=== PATIENT | female | born 1935 | race Caucasian/White ===

== ENCOUNTER → 2017-10-06 08:02 | Outpatient (CLI) | payer OTHER, SELFPAY ==
[2017-10-06 09:56] LABS: Anion Gap 8.8 mmol/L (3-11); BUN 22 mg/dL (7-18); CO2 29.2 mmol/L (21.0-32.0); CREATININE 0.89 mg/dL (0.55-1.02); Calcium 8.8 mg/dL (8.5-10.1); Chloride 106 mmol/L (98-107); Cholesterol 177 mg/dL (50-200); Glucose 164 mg/dL (70-100); HDL Cholesterol 44 mg/dL (40-60); LDL CHOLESTEROL 111 mg/dL (<100); Potassium 4.5 mmol/L (3.5-5.1); Sodium 144 mmol/L (136-145); Triglyceride 150 mg/dL (30-150)
[2017-10-06 09:58] LABS: COMMENT (LAB VIEW ONLY) 158.32 mg/dL; Microalb ug/mg Crea 19.5 ug/mg Cr
== END ==
PROVIDERS: PCP Internal Medicine; Visit Provider Internal Medicine
DX: E11.9 Type 2 diabetes mellitus without complications (principal); E78.00 Pure hypercholesterolemia, unspecified
CPT/HCPCS: 36415; 80048; 80061; 83721; 82043; 82570

== ENCOUNTER 2018-05-01 09:44 | Day surgery (SDC) | payer OTHER, SELFPAY ==
--- NOTE | 2018-04-30 17:52 | POEE_ITS ---
History of Present Illness Chief Complaint: Progressive decreased vision, right eye Narrative: The patient is an 82-year-old lady with history of progressive decreased vision in both eyes at both distance and near. She notes significant difficulty driving and watching television. On examination she was noted to have bilateral nuclear cortical and posterior subcapsular cataracts with visual acuity of 20/30 in each eye. The option of cataract surgery was offered to the patient and she felt she was symptomatic enough that she wished to proceed. NOTE: The Chief Complaint, HPI, Past Medical History, Past Surgical History, Family History, Social History, Medications, and complete Ophthalmic Exam with detailed Assessment and Plan have already been documented in the patient's outpatient ophthalmic record and are not covered again in detail here. PFS Medical History Cortical cataract of right eye (Acute) Nuclear sclerotic cataract of right eye (Acute) Posterior subcapsular age-related cataract, right eye (Acute) Diabetes mellitus Surgical History H/O toe surgery (Resolved) S/P tonsillectomy and adenoidectomy (Resolved) Ligation of fallopian tube (~1995) Family History Grandmother Diabetes Father Lung cancer Mother Emphysema of lung Social History housing: house lives independently: Yes number of children: 3 current occupational status: employed current occupation: hairdresser what type of physical activity do you participate in: walking duration: 15-30 minutes/day Smoking and Tabacco status: Former Tobacco Use Smoking risk assessment performed?: Yes alcohol intake: never substance use type: does not use Seatbelt use: always Drives intoxicated or rides with intoxicated front end loader driver: No working smoke detector in home: Yes carbon monox detector in home: Yes Meds Home Medications Medication Instructions Recorded Confirmed Type aspirin [Lo-Dose Aspirin] 81 mg PO DAILY tab-cap 06/22/12 04/26/18 History multivitamin 1 ea PO DAILY 06/22/12 04/26/18 History Accu-Chek Compact Plus Care kit 01/16/13 04/18/18 History lancets #180 ea 03/29/17 04/18/18 Rx albuterol sulfate [Proair Hfa] 1 - 2 puff INHALATION Q4H PRN 08/10/17 04/26/18 History inhaler blood sugar diagnostic strips #180 strip 04/05/18 04/18/18 Rx metformin 500 mg tablet 500 mg PO BID #180 tab-cap 04/05/18 04/26/18 Rx simvastatin 10 mg tablet 10 mg PO DAILY #90 tab-cap 04/05/18 04/26/18 Rx lisinopril 20 mg tablet 20 mg PO DAILY #90 tab 04/18/18 04/26/18 Rx ranitidine HCl 150 mg PO HS 04/27/18 04/27/18 History Allergies Allergy/AdvReac Type Severity Reaction Status Date / Time guaifenesin AdvReac Intermediate Nausea Verified 04/26/18 17:41 Exam OCULAR EXAM:: Most recent ocular examination revealed corrected visual acuity of 20/30 in each eye. Intraocular pressure is 15 OD, 16 OS. Extraocular motility is normal. Pupils equal, round, and reactive without afferent pupillary defect slit-lamp examination is significant for pupils dilating to 5.5 mm OU. 2+ n uclear with 1+ cortical cataract OU and trace posterior subcapsular cataract. Funduscopic examination reveals disc cupping of 0.5 OU with normal vessels. The optic nerves have good perfusion and normal color. The retinal vasculature is normal without significant tortuosity or abnormality. The maculas are normal in appearance with normal contour and foveal reflex appropriate for age. The peripheral retina and vitreous are normal. BRIGHTNESS ACUITY TESTING (BAT):: Brightness acuity testing of the right eye off is 20/30. Low is 20/40. Medium is 20/50. High is 20/60. Assessment and Plan (1) Posterior subcapsular age-related cataract, right eye: Current visit: No Status: Acute Assessment: Visually significant cataract, right eye. Plan: Cataract extraction with intraocular lens implantation, right eye (2) Nuclear sclerotic cataract of right eye: Current visit: No Status: Acute Assessment: Visually significant cataract, right eye. Plan: Cataract extraction with intraocular lens implantation, right eye (3) Cortical cataract of right eye: Current visit: No Status: Acute Assessment: Visually significant cataract, right eye. Plan: Cataract extraction with intraocular lens implantation, right eye Note: NOTE:: The details of the planned surgery, including the risks, indications,limitations,expectations,outcome and possible complications were explained to the patient. The patient understands the complications including, but not limited to: infection, hemorrhage, posterior dislocation of the lens or nuclear fragments which may require the intervention of a vitreoretinal surgeon, possible loss of the eye, or from anesthetic complications. The patient has been made aware of the option of not having surgery, that vision following surgery may not be equal to that prior to surgery, and that the planned surgery may not achieve the intended results. Following this discussion, which the patient appeared to understand, the patient wishes to proceed with cataract surgery with lens implantation of the affected eye to improve and maximize vis ion.
--- NOTE | 2018-04-30 18:35 | W.PM.DSUDISC ---
Discharge Plan Disposition Patient Disposition: HOME Condition: Stable Discharge Details Attending Provider: Joseph Zuluaga Primary Care Provider: Selene White Home Meds and New Rx's Prescriptions: No Action lisinopril 20 mg tablet 20 mg PO DAILY Qty: 90 RF: 3 multivitamin 1 EACH tablet 1 ea PO DAILY RF: 0 aspirin [Lo-Dose Aspirin] 81 MG tablet,delayed release (DR/EC) 81 mg PO DAILY RF: 0 Accu-Chek Compact Plus Care 1 EACH kit 1 ea Miscellaneous RF: 0 lancets 1 EACH misc 1 ea Miscellaneous BID Qty: 180 RF: 3 albuterol sulfate [ProAir HFA] 8.5 GM HFA aerosol inhaler 1 - 2 puff Inhalation Q4H PRN RF: 0 Blood Glucose Test strip 1 ea Miscellaneous BID Qty: 180 RF: 3 metformin 500 mg tablet 500 mg PO BID Qty: 180 RF: 3 simvastatin 10 mg tablet 10 mg PO DAILY Qty: 90 RF: 3 ranitidine HCl 150 mg tablet 150 mg PO HS RF: 0 Discharge Instructions Stand Alone Forms: Post-op Topical Cataract, Stoney Valverde (DSU) Discharge Orders Discharge Orders: Discharge Order (Routine); Ordered 05/01/18 Ordered By: Joseph Zuluaga DS: Diagnosis Discharge Diagnosis (1) Status post cataract extraction and insertion of intraocular lens of right eye: Status: Chronic
[2018-05-01 09:55] VITALS: BP 144/81; PULSE 88; RESP 16; TEMP 35.9; O2SAT 95
[2018-05-01] MEDS: Tetracaine 0.5% 4 ML BTL OD ×4 (10:23→11:53)
[2018-05-01] MEDS: Tropicam./Phenyleph. (1/2.5%) 5 ML BTL OD ×3 (10:24→11:32)
[2018-05-01] MEDS: Lidocaine 2% Jelly 6 ML SYR (11:53)
[2018-05-01] MEDS: Povidone-Iodine Ophth 30 ML BTL ×2 (11:53→11:58)
[2018-05-01] MEDS: Balanced Salt Soln.-PLUS 500 ML BAG (12:00)
[2018-05-01] MEDS: Lidocaine 1% Pres-Free 5 ML VIAL (12:01)
--- NOTE | 2018-05-01 12:22 | W.PM.OP ---
Date of service: 05/01/18 Time of Service: 12:23 Operative Note PRE-OP DIAGNOSIS: Cataract, right eye PROCEDURE: Cataract extraction using phacoemulsification with intraocular lens implant, right eye SURGEON: Joseph Zuluaga ANESTHESIA: MAC and local (sub-tenon's anesthetic infiltration) ESTIMATED BLOOD LOSS: 0 PATHOLOGY: none sent COMPLICATIONS: None Patient was transported to: same day Patient's condition: stable Implants: Dario [employer] Dario Vision / [employer] Tecnis ZCB00 intraocular lens Indications: Progressive decreased vision due to cataract, right eye Procedure Description: CATARACT SURGERY OPERATIVE REPORT PREOPERATIVE DIAGNOSIS: Nuclear/cortical/posterior subcapsular cataract, right eye POSTOPERATIVE DIAGNOSIS: Same OPERATION: Cataract extraction using phacoemulsification with posterior chamber intraocular lens implant, right eye. IOL: IOL Environmental Remediation Specialist/Model: J&J Ambarella / LEONARDO Tecnis ZCB00 IOL Power: + 21.50 diopters IOL Serial Number: [id number] Optic Diameter: 6.0mm Haptic/Overall Diameter: 13.0mm PHACO INFO: [employer] Vision System with OZil and Active Fluidics Cumulative Dispersed Energy (CDE): 6.8 seconds SURGEON: Joseph Zuluaga MD, DUGLAS ANESTHESIA: Monitored Anesthesia Care (MAC), with local sub-tenon's anesthetic infiltration COMPLICATIONS: None SPECIMENS: None INDICATIONS FOR PROCEDURE: The patient is an 82-year-old lady with history of diminished visual acuity in both eyes secondary to the development of bilateral nuclear cortical and posterior subcapsular cataract. She is significantly symptomatic that she desires cataract surgery and attempt to improve and maximize her vision. PROCEDURE: The correct surgical eye was identified and marked as the right eye and the pupil was dilated in the preoperative area using mydriatics and cycloplegics. The dilated pupil size was 7.0 mm. Oral sedation was administered in the form of an Imprimis MKO Melt (midazolam 3mg/ketamine 25mg/ondansetron 2mg). The patient was brought to the operating room where cardiopulmonary monitoring was instituted and surgical time-out was performed, confirming the correct operative eye and IOL power. Topical anesthesia was administered and ophthalmic povidone-iodine 5% was instilled into the conjunctival fornices. Lidocaine gel was applied to the cornea and the meera-ocular area was prepped with Betadine 10% solution and draped in the usual sterile fashion for intraocular surgery, including an aperture drape. A Tegaderm transparent film dressing was cut in half and used to cover the lashes and lid margins. Care was taken to sequester the lashes and lid margins under the Tegaderm dressing. A lid speculum was placed between the lids of the operative eye and the Nilda-Rashel operating microscope was maneuvered into position. Ifrah scissors were then used to make a conjunctival buttonhole approximately 6mm posterior to the limbus in the inferonasal quadrant. Blunt dissection was carried out to expose bare sclera, and a blunt-tipped sub-tenon?s anesthesia cannula was introduced and passed posteriorly along the globe where non-preserved plain lidocaine was injected into posterior sub-Tenon?s space. A sideport knife was used to make a paracentesis port inferiortemporally, and the anterior chamber was filled with Healon GV. A 2.4mm keratome knife was used to create a half-thickness groove at the limbus and then to construct a three-plane near-clear corneal tunnel extending 2.0mm into clear cornea in the superiortemporal position. . A flap was raised on the anterior capsule and capsulorhexis forceps were used to complete a continuous curvilinear capsulorhexis of 5.0 mm. Balanced salt solution was then used to perform cortical cleaving hydrodissection and nuclear hydrodelineation until the lens could be freely rotated within the capsular bag. The lens nucleus was then disassembled and removed within the capsular bag and iris plane using phacoemulsification. Residual cortical material was removed using the I/A handpiece. The posterior capsule was carefully polished to remove as much residual lens epithelial cells as safely possible. The capsular bag was then inflated and the anterior chamber deepened with viscoelastic. The lens implant described above was inserted into the capsular bag using the LEONARDO [place] Injector. A Kuglen hook was used to dial the IOL into position. Residual viscoelastic was then removed first from posterior to the IOL, then from the anterior chamber using the I/A handpiece. The lens implant was noted to center nicely within the capsular bag. The incisions were stromally hydrated, and the anterior chamber was reformed using BSS. Then 0.4cc of moxifloxacin 1.5mg/ml were injected into the capsular bag and anterior chamber. The incisions were checked with a Weck spear and found to be secure. Several drops of ophthalmic povidone-iodine 5% were then applied to the eye followed by two drops of Imprimis combination moxifloxacin/dexamethasone solution. The drapes were removed and a clear plastic protective eye shield was placed over the eye. The patient was then returned to Same Day Surgery in stable condition.
[2018-05-01 12:45] VITALS: BP 133/80; PULSE 80; RESP 16; TEMP 35.9; O2SAT 92
--- NOTE | 2018-05-01 13:40 | ROE_ITS ---
Date of service: 05/01/18 Time of Service: 13:40 Operative Note PRE-OP DIAGNOSIS: Cataract, right eye PROCEDURE: Dario [employer] Dario Vision / [employer] Tecnis ZCB00 intraocular lens SURGEON: Joseph Zuluaga ANESTHESIA: MAC and local (sub-tenon's anesthetic infiltration) ESTIMATED BLOOD LOSS: 0 PATHOLOGY: none sent COMPLICATIONS: None Patient was transported to: same day Patient's condition: stable Implants: Dario [employer] Dario Vision / [employer] Tecnis ZCB00 intraocular lens Indications: Progressive decreased vision due to cataract, right eye Procedure Description: CATARACT SURGERY OPERATIVE REPORT PREOPERATIVE DIAGNOSIS: [] POSTOPERATIVE DIAGNOSIS: Same OPERATION: Cataract extraction using phacoemulsification with posterior chamber intraocular lens implant, right eye. IOL: IOL Car Hop/Model: J&J Vision / LEONARDO Tecnis ZCB00 IOL Power: +[] diopters IOL Serial Number: [] Optic Diameter: 6.0mm Haptic/Overall Diameter: 13.0mm PHACO INFO: Dieter [employer] Vision System with OZil and Active Fluidics Cumulative Dispersed Energy (CDE): [] seconds SURGEON: Joseph Zuluaga MD, DUGLAS ANESTHESIA: Monitored Anesthesia Care (MAC), with local sub-tenon's anesthetic infiltration COMPLICATIONS: None SPECIMENS: None INDICATIONS FOR PROCEDURE: [] PROCEDURE: The correct surgical eye was identified and marked as the right eye and the pupil was dilated in the preoperative area using mydriatics and cycloplegics. The dilated pupil size was [] mm. Oral sedation was administered in the form of an Imprimis MKO Melt (midazolam 3mg/ketamine 25mg/ondansetron 2mg). The patient was brought to the operating room where cardiopulmonary monitoring was instituted and surgical time-out was performed, confirming the correct operative eye and IOL power. Topical anesthesia was administered and ophthalmic povidone-iodine 5% was instilled into the conjunctival fornices. Lidocaine gel was applied to the cornea and the meera-ocular area was prepped with Betadine 10% solution and draped in the usual sterile fashion for intraocular surgery, including an aperture drape. A Tegaderm transparent film dressing was cut in half and used to cover the lashes and lid margins. Care was taken to sequester the lashes and lid margins under the Tegaderm dressing. A lid speculum was placed between the lids of the operative eye and the Nilda-Rashel operating microscope was maneuvered into position. Ifrah scissors were then used to make a conjunctival buttonhole approximately 6mm posterior to the limbus in the inferonasal quadrant. Blunt dissection was carried out to expose bare sclera, and a blunt-tipped sub-tenon?s anesthesia cannula was introduced and passed posteriorly along the globe where non- preserved plain lidocaine was injected into posterior sub-Tenon?s space. A sideport knife was used to make a paracentesis port inferiortemporally, and the anterior chamber was filled with Healon GV. A 2.4mm keratome knife was used to create a half-thickness groove at the limbus and then to construct a three-plane near-clear corneal tunnel extending 2.0mm into clear cornea in the superiortemporal position. . A flap was raised on the anterior capsule and capsulorhexis forceps were used to complete a continuous curvilinear capsulorhexis of []mm. Balanced salt solution was then used to perform cortical cleaving hydrodissection and nuclear hydrodelineation until the lens could be freely rotated within the capsular bag. The lens nucleus was then disassembled and removed within the capsular bag and iris plane using phacoemulsification. Residual cortical material was removed using the I/A handpiece. The posterior capsule was carefully polished to remove as much residual lens epithelial cells as safely possible. The capsular bag was then inflated and the anterior chamber deepened with viscoelastic. The lens implant described above was inserted into the capsular bag using the LEONARDO [place] Injector. A Kuglen hook was used to dial the IOL into position. Residual viscoelastic was then removed first from posterior to the IOL, then from the anterior chamber using the I/A handpiece. The lens implant was noted to center nicely within the capsular bag. The incisions were stromally hydrated, and the anterior chamber was reformed using BSS. Then 0.4cc of moxifloxacin 1.5mg/ml were injected into the capsular bag and anterior chamber. The incisions were checked with a Weck spear and found to be secure. Several drops of ophthalmic povidone-iodine 5% were then applied to the eye followed by two drops of Imprimis combination moxifloxacin/dexamethasone solution. The drapes were removed and a clear plastic protective eye shield was placed over the eye. The patient was then returned to Same Day Surgery in stable condition.
== END 2018-05-01 12:55 | disposition home or self-care (01) ==
PROVIDERS: PCP Internal Medicine; Visit Provider Ophthalmology
PROC: (CPT 66984; principal; 2018-05-01 13:45)
DX: H25.811 Combined forms of age-related cataract, right eye (principal); E11.9 Type 2 diabetes mellitus without complications; Z79.84 Long term (current) use of oral hypoglycemic drugs; I10 Essential (primary) hypertension; K21.9 Gastro-esophageal reflux disease without esophagitis
CPT/HCPCS: 66984; V2632

== ENCOUNTER 2018-05-15 09:48 | Day surgery (SDC) | payer OTHER, SELFPAY ==
--- NOTE | 2018-05-14 17:08 | POEE_ITS ---
History of Present Illness Chief Complaint: Progressive decreased vision, left eye Narrative: The patient is an 82-year old lady who presented with complaints of progressive decreased vision in both eyes at both distance and near, particularly when driving. She notes significant glare with bright lights at night and sunlight. On examination she was noted to have moderate bilateral nuclear cortical and posterior subcapsular cataracts with visual acuity of 20/30 in each eye, but with significant glare disability. The option of cataract surgery was offered to the patient and she felt she was symptomatic enough that she wished to proceed. Cataract surgery was performed OD on 05/01/2018. Postoperatively, she has regained uncorrected vision of 20/20 in the right eye. She now presents for cataract surgery in the left eye. NOTE: The Chief Complaint, HPI, Past Medical History, Past Surgical History, Family History, Social History, Medications, and complete Ophthalmic Exam with detailed Assessment and Plan have already been documented in the patient's outpatient ophthalmic record and are not covered again in detail here. PFS Medical History Cortical cataract of right eye (Resolved) Nuclear sclerotic cataract of right eye (Resolved) Posterior subcapsular age-related cataract, right eye (Resolved) Diabetes mellitus Surgical History Status post cataract extraction and insertion of intraocular lens of right eye (Chronic 05/01/18) H/O toe surgery (Resolved) S/P tonsillectomy and adenoidectomy (Resolved) Ligation of fallopian tube (~1995) Family History Grandmother Diabetes Father Lung cancer Mother Emphysema of lung Social History Smoking/Tobacco Use Status: Former Tobacco Use Alcohol Intake: never Drug use: Never Substance use type: does not use Housing: house Number of Children: 3 current occupation: hairdresser What type of physical activity do you participate in: walking Duration: 15-30 minutes/day Seatbelt use: always Drive intox or ride w/intox road oiling truck driver: No Working smoke detector in home: Yes Carbon monox detector in home: Yes Do you feel safe in your relationship?: Yes Meds Home Medications Medication Instructions Recorded Confirmed Type aspirin [Lo-Dose Aspirin] 81 mg PO DAILY tab-cap 06/22/12 05/01/18 History multivitamin 1 ea PO DAILY 06/22/12 05/01/18 History Accu-Chek Compact Plus Care kit 01/16/13 05/01/18 History lancets #180 ea 03/29/17 05/01/18 Rx albuterol sulfate [Proair Hfa] 1 - 2 puff INHALATION Q4H PRN 08/10/17 05/01/18 History inhaler blood sugar diagnostic strips #180 strip 04/05/18 05/01/18 Rx metformin 500 mg tablet 500 mg PO BID #180 tab-cap 04/05/18 05/01/18 Rx simvastatin 10 mg tablet 10 mg PO DAILY #90 tab-cap 04/05/18 05/01/18 Rx lisinopril 20 mg tablet 20 mg PO DAILY #90 tab 04/18/18 05/01/18 Rx ranitidine HCl 150 mg PO HS 04/27/18 05/01/18 History Allergies Allergy/AdvReac Type Severity Reaction Status Date / Time guaifenesin AdvReac Intermediate Nausea Verified 04/26/18 17:41 Exam OCULAR EXAM:: Most recent ocular examination is significant for uncorrected vision of 20/20 OD, 20/30 OS. Intraocular pressure is 17 OD, 16 OS. Pupils equal, round, and reactive without afferent pupillary defect extraocular motility is normal. Slit-lamp examination is significant for pupils dilating to 5.5 mm OU. Well-positioned PCIOL OD with clear posterior capsule. In the left eye there is a 2+ nuclear with 1+ cortical and trace posterior subcapsular cataract. Dilated funduscopic examination shows disc cupping of 0.5 OU with good color. The optic nerves have good perfusion and normal color. The retinal vasculature is normal without significant tortuosity or abnormality. The maculas are normal in appearance with normal contour and foveal reflex appropriate for age. The peripheral retina and vitreous are normal. BRIGHTNESS ACUITY TESTING (BAT):: Brightness acuity testing of the left eye off is 20/30. Low is 20/40. Medium is 20/50. High is 20/60. Assessment and Plan (1) Posterior subcapsular age-related cataract of left eye: Current visit: No Status: Acute Assessment: Visually significant cataract, left eye. Plan: Cataract extraction with intraocular lens implantation, left eye (2) Nuclear sclerotic cataract of left eye: Current visit: No Status: Acute Assessment: Visually significant cataract, left eye. Plan: Cataract extraction with intraocular lens implantation, left eye (3) Cortical cataract of left eye: Current visit: No Status: Acute Assessment: Visually significant cataract, left eye. Plan: Cataract extraction with intraocular lens implantation, left eye Note: NOTE:: The details of the planned surgery, including the risks, indications,limitations,expectations,outcome and possible complications were explained to the patient. The patient understands the complications including, but not limited to: infection, hemorrhage, posterior dislocation of the lens or nuclear fragments which may require the intervention of a vitreoretinal surgeon, possible loss of the eye, or from anesthetic complications. The patient has been made aware of the option of not having surgery, that vision following surgery may not be equal to that prior to surgery, and that the planned surgery may not achieve the intended results. Following this discussion, which the patient appeared to understand, the patient wishes to proceed with cataract surgery with lens implantation of the affected eye to improve and maximize vision.
--- NOTE | 2018-05-14 19:49 | W.PM.DSUDISC ---
Discharge Plan Disposition Patient Disposition: HOME Condition: Stable Discharge Details Attending Provider: Joseph Zuluaga Primary Care Provider: Selene White Home Meds and New Rx's Prescriptions: No Action lisinopril 20 mg tablet 20 mg PO DAILY Qty: 90 RF: 3 multivitamin 1 EACH tablet 1 ea PO DAILY RF: 0 aspirin [Lo-Dose Aspirin] 81 MG tablet,delayed release (DR/EC) 81 mg PO DAILY RF: 0 Accu-Chek Compact Plus Care 1 EACH kit 1 ea Miscellaneous RF: 0 lancets 1 EACH misc 1 ea Miscellaneous BID Qty: 180 RF: 3 albuterol sulfate [ProAir HFA] 8.5 GM HFA aerosol inhaler 1 - 2 puff Inhalation Q4H PRN RF: 0 Blood Glucose Test strip 1 ea Miscellaneous BID Qty: 180 RF: 3 metformin 500 mg tablet 500 mg PO BID Qty: 180 RF: 3 simvastatin 10 mg tablet 10 mg PO DAILY Qty: 90 RF: 3 ranitidine HCl 150 mg tablet 150 mg PO HS RF: 0 Discharge Instructions Stand Alone Forms: Post-op Topical Cataract, Press Ganey (DSU) Discharge Orders Discharge Orders: Discharge Order (Routine); Ordered 05/15/18 Ordered By: Joseph Zuluaga DS: Diagnosis Discharge Diagnosis (1) Posterior subcapsular age-related cataract of left eye: Status: Resolved (2) Nuclear sclerotic cataract of left eye: Status: Resolved (3) Cortical cataract of left eye: Status: Resolved (4) Status post cataract extraction and insertion of intraocular lens of left eye: Status: Chronic
--- NOTE | 2018-05-14 19:54 | ROE_ITS ---
Date of service: 05/15/18 Time of Service: 12:04 Operative Note PRE-OP DIAGNOSIS: Cataract, left eye POST-OP DIAGNOSIS: same PROCEDURE: Cataract extraction using phacoemulsification with intraocular lens implant, left eye SURGEON: Joseph Zuluaga ANESTHESIA: MAC and local (sub-tenon's anesthetic infiltration) PATHOLOGY: none sent COMPLICATIONS: None Patient was transported to: same day Patient's condition: stable Implants: D[employer] / [employer] Tecnis [id number] Indications: Progressive decreased vision due to cataract, left eye Procedure Description: CATARACT SURGERY OPERATIVE REPORT PREOPERATIVE DIAGNOSIS: Nuclear/cortical/posterior subcapsular cataract, left eye POSTOPERATIVE DIAGNOSIS: Same OPERATION: Cataract extraction using phacoemulsification with posterior chamber intraocular lens implant, left eye. IOL: IOL Collection Manager/Model: [employer] / LEONARDO Tecnis [id number] IOL Power: + 21.50 diopters IOL Serial Number: [id number] Optic Diameter: 6.0mm Haptic/Overall Diameter: 13.0mm PHACO INFO: Dieter [employer] Vision System with OZil and Active [employer]uidics Cumulative Dispersed Energy (CDE): 6.49 seconds SURGEON: Joseph Zuluaga MD, DU[place] ANESTHESIA: Monitored Anesthesia Care (MAC), with local sub-tenon's anesthetic infiltration COMPLICATIONS: None SPECIMENS: None INDICATIONS FOR PROCEDURE: The patient is an 82-year-old lady with history of diminished visual acuity in both eyes secondary to the development of bilateral nuclear cortical and posterior subcapsular cataract. She was significantly symptomatically she desired cataract surgery, which was performed OD on 05/01/2018. She is doing well postoperatively, and now presents for cataract surgery of the left eye. PROCEDURE: The correct surgical eye was identified and marked as the left eye and the pupil was dilated in the preoperative area using mydriatics and cycloplegics. The dilated pupil size was 6.5 mm. No oral or IV sedation was used. The patient was brought to the operating room where cardiopulmonary monitoring was instituted and surgical time-out was performed, confirming the correct operative eye and IOL power. Topical anesthesia was administered and ophthalmic povidone-iodine 5% was instilled into the conjunctival fornices. Lidocaine gel was applied to the cornea and the meera-ocular area was prepped with Betadine 10% solution and draped in the usual sterile fashion for intraocular surgery, including an aperture drape. A Tegaderm transparent film dressing was cut in half and used to cover the lashes and lid margins. Care was taken to sequester the lashes and lid margins under the Tegaderm dressing. A lid speculum was placed between the lids of the operative eye and the Nilda-Rashel operating microscope was maneuvered into position. Ifrah scissors were then used to make a conjunctival buttonhole approximately 6mm posterior to the limbus in the inferonasal quadrant. Blunt dissection was carried out to expose bare sclera, and a blunt-tipped sub-tenon?s anesthesia cannula was introduced and passed posteriorly along the globe where non- preserved plain lidocaine was injected into posterior sub-Tenon?s space. A sideport knife was used to make a paracentesis port superior/superiortemporal, and the anterior chamber was filled with Healon GV. A 2.4mm keratome knife was used to create a half-thickness groove at the limbus and then to construct a three-plane near-clear corneal tunnel extending 2.0mm into clear cornea in the temporal position. . A flap was raised on the anterior capsule and capsulorhexis forceps were used to complete a continuous curvilinear capsulorhexis of 5.0 mm. Balanced salt solution was then used to perform cortical cleaving hydrodissection and nuclear hydrodelineation until the lens could be freely rotated within the capsular bag. The lens nucleus was then disassembled and removed within the capsular bag and iris plane using phacoemulsification. Residual cortical material was removed using the 45-degree angled silicone I/A tip with 0.3mm port. The posterior capsule was carefully polished to remove as much residual lens epithelial cells as safely possible. The capsular bag was then inflated and the anterior chamber deepened with viscoelastic. The lens implant described above was inserted into the capsular bag using the LEONARDO [place] Injector. A Kuglen hook was used to dial the IOL into position. Residual viscoelastic was then removed first from posterior to the IOL, then from the anterior chamber using the I/A handpiece. The lens implant was noted to center nicely within the capsular bag. The incisions were stromally hydrated, and the anterior chamber was reformed using BSS. Then 0.4cc of moxifloxacin 1.5mg/ml were injected into the capsular bag and anterior chamber. The incisions were checked with a Weck spear and found to be secure. Several drops of ophthalmic povidone-iodine 5% were then applied to the eye followed by two drops of Imprimis combination moxifloxacin/dexamethasone solution. The drapes were removed and a clear plastic protective eye shield was placed over the eye. The patient was then returned to [facility] Day Surgery in stable condition.
[2018-05-15 10:03] VITALS: BP 125/78; PULSE 86; RESP 18; TEMP 36.1; O2SAT 95
[2018-05-15] MEDS: Tetracaine 0.5% 4 ML BTL OS ×4 (10:20→11:34)
[2018-05-15] MEDS: Tropicam./Phenyleph. (1/2.5%) 5 ML BTL OS ×3 (10:20→10:27)
[2018-05-15] MEDS: Povidone-Iodine Ophth 30 ML BTL (11:34)
[2018-05-15] MEDS: Lidocaine 2% Jelly 6 ML SYR (11:34)
[2018-05-15] MEDS: Lidocaine 1% Pres-Free 5 ML VIAL (11:39)
[2018-05-15] MEDS: Balanced Salt Soln.-PLUS 500 ML BAG (11:40)
== END 2018-05-15 12:25 | disposition home or self-care (01) ==
LOC: SUR 09:48
PROVIDERS: PCP Internal Medicine; Visit Provider Ophthalmology
PROC: (CPT 66984; principal; 2018-05-15 13:45)
DX: H25.812 Combined forms of age-related cataract, left eye (principal); Z98.41 Cataract extraction status, right eye; Z96.1 Presence of intraocular lens; E11.9 Type 2 diabetes mellitus without complications; Z79.84 Long term (current) use of oral hypoglycemic drugs; I10 Essential (primary) hypertension; K21.9 Gastro-esophageal reflux disease without esophagitis
CPT/HCPCS: 66984; V2632

== ENCOUNTER 2018-08-01 06:51 | Outpatient (CLI) | payer OTHER, SELFPAY ==
[2018-08-01 09:16] LABS: COMMENT (LAB VIEW ONLY) 82.63 mg/dL; Microalb ug/mg Crea 71.5 ug/mg Cr
[2018-08-01 09:17] LABS: Anion Gap 7.8 mmol/L (3-11); BUN 20 mg/dL (7-18); CO2 29.2 mmol/L (21.0-32.0); Calcium 9.1 mg/dL (8.5-10.1); Calculated LDL 104; Chloride 105 mmol/L (98-107); Cholesterol 176 mg/dL (50-200); Glucose 177 mg/dL (70-100); HDL Cholesterol 42 mg/dL (40-60); Potassium 4.8 mmol/L (3.5-5.1); Sodium 142 mmol/L (136-145); Triglyceride 152 mg/dL (30-150)
== END 2018-08-01 07:11 ==
PROVIDERS: PCP Internal Medicine; Visit Provider Internal Medicine
DX: E11.9 Type 2 diabetes mellitus without complications (principal); E78.00 Pure hypercholesterolemia, unspecified; I10 Essential (primary) hypertension; R73.01 Impaired fasting glucose
CPT/HCPCS: 36415; 80048; 80061; 83721; 82043; 82570

== ENCOUNTER 2018-09-14 10:21 | Outpatient (CLI) | payer OTHER, SELFPAY ==
--- NOTE | 2018-09-14 10:25 | DI.RAD_ITS ---
SYMPTOMS/DIAGNOSIS: CERVICALGIA, M54.2 CERVICAL SPINE: There are severe facet joint degenerative changes at C 2 - 3 and C 3 - 4. There are degenerative disc changes greatest at C 5 - 6. There is mild bilateral neural foraminal narrowing at this level. The alignment appears normal. There is no prevertebral soft tissue swelling. IMPRESSION: Degenerative changes greatest at C 5 - 6 with bilateral neural foraminal narrowing.
== END 2018-09-14 10:41 ==
PROVIDERS: PCP Internal Medicine; Visit Provider Internal Medicine
DX: M54.2 Cervicalgia (principal); M47.12 Other spondylosis with myelopathy, cervical region; M48.02 Spinal stenosis, cervical region
CPT/HCPCS: 72050

== ENCOUNTER 2019-12-05 10:28 | Outpatient (REF) | payer OTHER, SELFPAY ==
[2019-12-05 20:52] LABS: Anion Gap 9.5 mmol/L (3-11); BUN 20 mg/dL (7-18); CO2 28.5 mmol/L (21.0-32.0); CREATININE 0.88 mg/dL (0.55-1.02); Calcium 9.4 mg/dL (8.5-10.1); Calculated LDL 104 mg/dL (<100); Chloride 104 mmol/L (98-107); Cholesterol 181 mg/dL (<200); Glucose 171 mg/dL (74-106); HDL Cholesterol 47 mg/dL (40-60); Potassium 5.2 mmol/L (3.5-5.1); Sodium 142 mmol/L (136-145); Triglyceride 154 mg/dL (<150)
== END 2019-12-05 10:48 ==
LOC: LBN 10:28
PROVIDERS: PCP Internal Medicine; Visit Provider Internal Medicine
DX: E11.9 Type 2 diabetes mellitus without complications (principal); I10 Essential (primary) hypertension; R80.9 Proteinuria, unspecified
CPT/HCPCS: 80048; 80061

== ENCOUNTER 2019-12-06 20:50 | Outpatient (REF) | payer OTHER, SELFPAY ==
[2019-12-06 18:23] LABS: COMMENT (LAB VIEW ONLY) 103.66 mg/dL; Microalb ug/mg Crea 35.6 ug/mg Cr
== END 2019-12-06 21:10 ==
LOC: LBN 20:50
PROVIDERS: PCP Internal Medicine; Visit Provider Internal Medicine
DX: E11.29 Type 2 diabetes mellitus with other diabetic kidney complication (principal); R80.9 Proteinuria, unspecified
CPT/HCPCS: 82043; 82570

== ENCOUNTER 2020-09-01 15:43 | Outpatient (CLI) | payer OTHER, SELFPAY ==
--- NOTE | 2020-09-01 14:15 | DI.RAD_ITS ---
Exam(s) XR KNEE LT 3V AP,LAT,REJI EXAM: XR KNEE LT 3V AP,LAT,REJI CLINICAL HISTORY: left knee pain. TECHNIQUE: 2D digital imaging was performed. COMPARISON: No exams were available for comparison FINDINGS: There is no evidence of fracture although there does appear to be a joint effusion as seen on the lat eral view. There is advanced narrowing of the lateral compartment [id number] apposition. Also mar ginal osteophytes. No significant narrowing of the medial compartment noted. Moderate degenerative changes in the patellofemoral compartment. No osseous lesions. IMPRESSION: Osteoarthritic degenerative changes as described above. DATA REPOSITORY: RADIATION DOSE DELIVERED:
== END 2020-09-01 15:44 | disposition home or self-care (01) ==
LOC: DIORS 15:43
PROVIDERS: PCP Internal Medicine; Referring Provider Internal Medicine; Visit Provider Student in an Organized Health Care Education/Training Program
DX: M25.562 Pain in left knee (principal); M17.12 Unilateral primary osteoarthritis, left knee
CPT/HCPCS: 73562; 99214

== ENCOUNTER → 2020-11-11 09:25 | Outpatient (BNVA) | payer MEDICARE, SELFPAY | PROVIDERS: PCP Internal Medicine; Referring Provider Internal Medicine | DX: M17.12 Unilateral primary osteoarthritis, left knee (principal) | CPT/HCPCS: 20610; J7325 ==

== ENCOUNTER 2020-12-25 02:55 | Outpatient (CLI) | payer MEDICARE, SELFPAY ==
[2020-12-25 10:28] LABS: COMMENT (LAB VIEW ONLY) 159.82 mg/dL; Microalb ug/mg Crea 32.8 ug/mg Cr
[2020-12-25 10:42] LABS: Anion Gap 10.1 mmol/L (3-11); BUN 27 mg/dL (7-18); CO2 30.9 mmol/L (21.0-32.0); Calcium 9.7 mg/dL (8.5-10.1); Calculated LDL 86 mg/dL (<100); Chloride 102 mmol/L (98-107); Cholesterol 159 mg/dL (<200); Estimated GFR 52.95 (mL/min/1.73m2); Glucose 192 mg/dL (74-106); HDL Cholesterol 39 mg/dL (40-60); Potassium 4.4 mmol/L (3.5-5.1); Sodium 143 mmol/L (136-145); Triglyceride 171 mg/dL (<150)
== END 2020-12-25 02:56 | disposition home or self-care (01) ==
LOC: LBO 02:55
PROVIDERS: PCP Internal Medicine; Visit Provider Internal Medicine
DX: E78.00 Pure hypercholesterolemia, unspecified (principal); I10 Essential (primary) hypertension; E11.9 Type 2 diabetes mellitus without complications
CPT/HCPCS: 36415; 80048; 80061; 82043; 82570

== ENCOUNTER → 2020-12-29 14:33 | Outpatient (BNVA) | payer MEDICARE, SELFPAY | PROVIDERS: PCP Internal Medicine; Referring Provider Internal Medicine; Visit Provider Student in an Organized Health Care Education/Training Program | DX: M17.12 Unilateral primary osteoarthritis, left knee (principal) | CPT/HCPCS: 20610; J1040 ==

== ENCOUNTER 2021-02-02 03:55 | Outpatient (CLI) | payer MEDICARE, SELFPAY ==
[2021-02-02 10:17] LABS: Anion Gap 7.9 mmol/L (3-11); BUN 21 mg/dL (7-18); CO2 29.1 mmol/L (21.0-32.0); Chloride 105 mmol/L (98-107); Estimated GFR 52.95 (mL/min/1.73m2); Glucose 231 mg/dL (74-106); Potassium 4.3 mmol/L (3.5-5.1); Sodium 142 mmol/L (136-145)
== END 2021-02-02 03:56 | disposition home or self-care (01) ==
LOC: LBO 03:55
PROVIDERS: PCP Nurse Practitioner; Visit Provider Nurse Practitioner
DX: I10 Essential (primary) hypertension (principal); E11.9 Type 2 diabetes mellitus without complications
CPT/HCPCS: 36415; 80048

== ENCOUNTER → 2021-04-24 10:42 | Outpatient (BNVA) | payer MEDICARE, SELFPAY | PROVIDERS: PCP Nurse Practitioner; Referring Provider Nurse Practitioner; Visit Provider Student in an Organized Health Care Education/Training Program | DX: M17.12 Unilateral primary osteoarthritis, left knee (principal) | CPT/HCPCS: 20610; J1040 ==

== ENCOUNTER → 2021-07-17 09:22 | Outpatient (BNVA) | payer MEDICARE, SELFPAY | PROVIDERS: PCP Nurse Practitioner; Referring Provider Nurse Practitioner; Visit Provider Student in an Organized Health Care Education/Training Program | DX: M17.12 Unilateral primary osteoarthritis, left knee (principal) | CPT/HCPCS: 99212 ==

== ENCOUNTER → 2021-08-06 08:56 | Outpatient (BNVA) | payer MEDICARE, SELFPAY | PROVIDERS: PCP Nurse Practitioner; Referring Provider Nurse Practitioner; Visit Provider Student in an Organized Health Care Education/Training Program | DX: M17.12 Unilateral primary osteoarthritis, left knee (principal) | CPT/HCPCS: 20610; J1040 ==

== ENCOUNTER 2021-09-21 10:04 | Emergency (ER) | payer MEDICARE, SELFPAY ==
[2021-09-21 10:21] VITALS: BP 159/76; PULSE 97; RESP 14; TEMP 37.1; O2SAT 95
--- NOTE | 2021-09-21 11:13 | ED.GENADUL_ITS ---
Discharge Plan Disposition Patient Disposition: HOME Condition: Stable Discharge Details Clinical Impression: Avulsion fracture of medial malleolus Primary Care Provider: Huong Schneider ED Provider: Chloé Mccarthy Home Meds and New Rx's Prescriptions: Continued glimepiride 1 mg tablet 1 mg PO BID Qty: 180 3RF multivitamin 1 EACH tablet 1 ea PO DAILY aspirin [Lo-Dose Aspirin] 81 MG tablet,delayed release (DR/EC) 81 mg PO DAILY (DME) Accu-Chek Compact Plus Care 1 EACH kit 1 ea Miscellaneous cholecalciferol (vitamin D3) 125 mcg (5,000 unit) capsule 125 mcg PO DAILY (DME) lancets [Accu-Chek Fastclix Lancet Drum] Misc See Rx Instructions .ROUTE .COMPLEX Qty: 204 3RF Dose Instruction: TEST TWICE DAILY FOR DIABETES MELLITUS TO MAINTAIN A1C < 7 Rx Instructions: TEST TWICE DAILY FOR DIABETES MELLITUS TO MAINTAIN A1C < 7 (DME) blood sugar diagnostic Strip See Rx Instructions .ROUTE .MEDSUPPLY Qty: 100 3RF Rx Instructions: Dispense Accu-check Guide strips to check BS BID for DM E11.9 to keep A1c at or below 7. famotidine 20 mg tablet 20 mg PO BID No Action simvastatin 10 mg tablet See Rx Instructions .ROUTE .COMPLEX Qty: 90 3RF Dose Instruction: TAKE 1 TABLET BY MOUTH DAILY Rx Instructions: TAKE 1 TABLET BY MOUTH DAILY lisinopril 20 mg tablet See Rx Instructions .ROUTE .COMPLEX Qty: 90 3RF Dose Instruction: TAKE 1 TABLET BY MOUTH DAILY Rx Instructions: TAKE 1 TABLET BY MOUTH DAILY Discharge Instructions Instructions: Ankle Fracture (ED) Additional Instructions: There is a question of a small fracture in your ankle. Please continue with the brace until reevaluated orthopedics. Please encourage rest, ice, elevation. Tylenol and/or ibuprofen as needed for discomfort. Please continue with walker. Please call orthopedics to schedule follow-up appointment, number listed below. If you develop any new or worsening symptoms to seek care urgently once again. Referrals: Casey Stern MD [ [facility] STAFF PHYSICIAN] - Discharge Data Discharge Date/Time-TO BE ENTERED AT DEPARTURE: 09/21/21 15:00 Medical Decision Making Patient is a pleasant 86-year-old female presented with chief complaint of right knee and ankle pain. She reports this began yesterday after gardening. Does not know of what type of movement or when this actually occurred. States that it was after she showered cleaning up from weeding. She denies any fevers or chills. No known specific area of trauma. She reports that she does have known arthritis and this may be the cause of underlying swelling. She denies any fevers or chills. No shortness of breath or chest pain. She is followed up by orthopedics for routine injections for the contralateral knee. Past medical history pertinent for left knee osteoarthritis, hypertension, type 2 diabetes, GERD. On exam, patient appears nontoxic. She has no calf pain or swelling. 2+ distal pulses. Intact sensation. She states swelling is noted fairly globally about the ankle that seems very isolated to the ankle, sparing the calf at all. She has no discoloration. She has a small effusion to the right knee. Neither joint has erythema, warmth. She is afebrile. She has full extension of the knee, flexion to approximately 60 degrees. Ligamentously intact. Able to straight leg raise. Ankle has full range of motion with no pain. She does report there is pain associated with weightbearing. Denies any known tick borne illnesses or bites. Patient's history and exam at this time is not consistent with a DVT. I see no evidence to suggest infection. More consistent with potential exacerbation of underlying arthritis given her provocative condition she was in with bleeding yesterday. Alternatively, this could potentially be a second illness. Will obtain x-ray of the right knee, ankle and send out a tick and Lyme panel FINDINGS: Three views were obtained.? There appears to be a small knee joint effusion.? There are slight degenerative changes of all 3 joints of the knee.? No other bony or soft tissue abnormality seen. IMPRESSION: FINDINGS: Three views were obtained.? There appears to be soft tissue swelling of the ankle.? The ankle mortise is well maintained.? There is slight deformity of medial malleolus with a questionable lucency of the tip of the medial malleolus, please correlate regarding possibility of a fracture at this site. No other evidence of fracture. Initially, patient seemed to have diffuse pain, if not more so on the lateral aspect of ankle. However, when f/u regarding imaging above, she was point tender over this area. She is followed by Dr. Stern regarding chronic left knee pain, will touch base regarding findings on XR. Spoke with Dr. Stern who reviewed the XR. He advised lace up ankle brace, RICE, advance activities as tolerated, walker to assist with mobilization. Patient has scheduled f/u with him already. Discused these recommendations with the patient. She was fitted with brace as well as walker. Advised that the tick and Lyme panel is pending and we will call her with any positive results. Return precautions were discussed. As noted above, patient will follow-up with orthopedics. All of her questions and concerns were addressed and she is in agreement this plan. HPI General Date/Time Provider Initiated Documentation: 09/21/21 10:30 . Limitations to Documentation: no limitations . Information obtained by: patient and RN notes reviewed . History of Present Illness 86 year old F presents to the emergency department with the chief complaint of right knee/ankle pain, described as moderate, with intensity rated at 5. Quality is described as aching, and is localized to the lower extremity. Patient reports no radiation. Patient started experiencing this day(s) and it has been constant. Rest improves symptom(s), Movement worsens symptoms . Patient notes no other symptoms.. Patient did receive the following treatments prior to arrival, none Related Data Home Medications Medication Instructions Recorded Confirmed aspirin 81 mg tablet,delayed 81 mg PO DAILY 06/22/12 09/29/21 release (Lo-Dose Aspirin) multivitamin 1 ea PO DAILY 06/22/12 09/29/21 blood-glucose meter, drum-type 01/16/13 09/29/21 (Accu-Chek Compact Plus Care kit) glimepiride 1 mg tablet 1 mg PO BID #180 tabs 04/27/21 09/29/21 cholecalciferol (vitamin D3) 125 125 mcg PO DAILY 06/29/21 09/29/21 mcg (5,000 unit) capsule lancets (Accu-Chek Fastclix Lancet #204 ea 07/06/21 09/29/21 Drum) blood sugar diagnostic #100 ea 08/04/21 09/29/21 famotidine 20 mg tablet 20 mg PO BID 09/16/21 09/29/21 lisinopril 20 mg tablet See Rx Instructions .Route 10/02/21 .COMPLEX #90 tabs simvastatin 10 mg tablet See Rx Instructions .Route 10/02/21 .COMPLEX #90 tabs Previous Rx's Medication Instructions Recorded glimepiride 1 mg tablet 1 mg PO BID #180 tabs 04/27/21 lancets (Accu-Chek Fastclix Lancet #204 ea 07/06/21 Drum) blood sugar diagnostic #100 ea 08/04/21 lisinopril 20 mg tablet See Rx Instructions .Route 10/02/21 .COMPLEX #90 tabs simvastatin 10 mg tablet See Rx Instructions .Route 10/02/21 .COMPLEX #90 tabs Allergies Allergy/AdvReac Type Severity Reaction Status Date / Time guaifenesin AdvReac Intermediate Nausea Verified 09/29/21 10:55 metformin AdvReac Diarrhea Verified 09/29/21 10:55 General Stated Complaint: Orthopedic COURTNEY: 4 Review of Systems Constitutional Constitutional: Reports as per HPI, Denies chills, Denies fever(s) and Denies weakness Musculoskeletal Musculoskeletal: Reports as per HPI and Denies tingling Integumentary/Breasts Skin/Breast: Reports as per HPI, Denies rash and Denies wounds Neurologic Neurologic: Reports as per HPI, Denies tingling, Denies paresthesias and Denies weakness PFSH All Active Problems (Updated 09/29/21 @ 15:41 by Rosamaria Mercedes) Osteochondral defect of ankle (Acute) Contusion of right knee (Acute) Avulsion fracture of medial malleolus (Acute) Osteoarthritis of left knee (Acute) Synvisc injections: 11/11/2020; 03/25/2017; 01/01/2016 DEPO MEDROL: 12/29/20, 04/24/21; 08/06/21 Cervical spinal stenosis (Chronic) 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) Pure hypercholesterolemia (Chronic 10/02/14) Insomnia (Chronic 10/02/14) Former smoker (Chronic 10/02/14) Essential hypertension (Chronic 10/04/12) Type 2 diabetes mellitus (Chronic 10/04/12) Cystocele with rectocele (Chronic 06/14/17) GERD (gastroesophageal reflux disease) (Chronic) Medical History Actinic keratosis Cellulitis of skin Chronic pruritic rash in adult Cortical cataract of right eye Diabetes mellitus GERD (gastroesophageal reflux disease) Hypertension Nuclear sclerotic cataract of right eye Posterior subcapsular age-related cataract, right eye Rash Surgical History H/O toe surgery Ligation of fallopian tube (~1995) S/P tonsillectomy and adenoidectomy Status post cataract extraction and insertion of intraocular lens of left eye (05/15/18) Status post cataract extraction and insertion of intraocular lens of right eye (05/01/18) Family History Grandmother Diabetes Father Lung cancer Mother Emphysema of lung Social History Smoking/Tobacco Use Status: Former Tobacco Use Smoking risk assessment performed?: Yes Alcohol Intake: never Drug use: Never Substance use type: does not use Household members: none Housing: house Number of Children: 3 Communication Needs: Corrective Lenses Do you need help understanding health information?: Never current occupation: hairdresser, retired Pets and animals: Yes Pets and animals: dog(s) Current gender identity: female What is your relationship status?: How often do you talk on the phone with friends or family?: never How often do you get together with friends or relatives?: never Do you belong to any clubs or organized social groups?: no Panel score (0-1 are the most socially isolated patients): 0 What type of physical activity do you participate in: walking Duration: 15-30 minutes/day Frequency: daily Seatbelt use: always Drive intox or ride w/intox concrete mixing truck driver: No Working smoke detector in home: Yes Carbon monox detector in home: Yes Do you feel safe at home: Yes Do you feel safe in your relationship?: Yes Exam Const General: cooperative, healthy appearing, comfortable, no acute distress, well developed and well groomed Nutritional Appearance: average body habitus and well nourished Orientation: alert and awake Resp Effort & Inspection: normal respiratory effort, able to speak in complete sentences and no respiratory distress Cardio Rate: regular rate Rhythm: regular rhythm Skin General skin exam: no rashes or lesions noted Lesions: no lesions Rashes: no rashes Trauma: no lacerations or abrasions Neuro General: patient alert and patient awake Cognition: normal cognition Speech: speech normal Gait: antalgic (in wheel chair for bulk of visit) Motor: muscle tone normal throughout Sensory Exam: no sensory deficits noted Extrem General: capillary refill normal, no pedal edema and no calf tenderness Right lower extremity: normal capillary refill, hip/thigh Details: normal to ins pection, knee (no pain over proximal fibula) Details: tenderness (generalized, no focal area of pain), swelling (small effusion), abnormal ROM (full extension, pain with flxion past 60) and knee ligament exam normal; no crepitus, no deformity and no unusual warmth, lower leg Details: normal to inspection, ankle Details: tenderness, swelling, no edema and normal ROM; no unusual warmth, no ecchymosis, no crepitus and achilles tendon exam normal and foot Details: normal capillary refill, normal to inspection, toes with normal ROM, no edema, vascular exam Details: dorsalis pedis pulse present, posterior tibial pulse present and normal capillary refill and motor-sensory exam Details: light-touch normal; no tenderness, no unusual warmth, no edema and no ecchymosis; no edema Psych Appearance: grossly normal and well kempt Mental Status: mental status grossly normal Speech and Movement: speech and movement normal Course Vital Signs Vital signs: Vital Signs Temperature 37.1 C 09/21/21 10:21 Pulse 97 H 09/21/21 10:21 Respiratory Rate 14 09/21/21 10:21 Blood Pressure 159/76 H 09/21/21 10:21 Pulse Oximetry 95 09/21/21 10:21 Temperature 37.1 C 09/21/21 10:21 Temperature Source Temporal Artery Scan 09/21/21 10:21 Pulse 97 H 09/21/21 10:21 Respiratory Rate 14 09/21/21 10:21 Respiratory Effort Non-Labored 09/21/21 10:25 Blood Pressure 159/76 H 09/21/21 10:21 Blood Pressure Position Sitting 09/21/21 10:21 Pulse Oximetry 95 09/21/21 10:21 Oxygen Delivery Method Room Air 09/21/21 10:21 Oxygen Flow Rate 0 09/21/21 10:21 Pain Level 5 09/21/21 10:21 Comment 09/21/21 10:21
--- NOTE | 2021-09-21 12:15 | DI.RAD_ITS ---
Exam(s) XR ANKLE RT COMPLETE EXAM: XR ANKLE RT COMPLETE CLINICAL HISTORY: swelling, pain TECHNIQUE: COMPARISON: CR XR KNEE RT 3V AP,LAT,REJI from 09/21/2021 FINDINGS: Three views were obtained. There appears to be soft tissue swelling of the ankle. The ankle mortise is well maintained. There is slight deformity of medial malleolus with a questionable lucency of th e tip of the medial malleolus, please correlate regarding possibility of a fracture at this site. No other evidence of fracture. IMPRESSION: RADIATION DOSE DELIVERED: Total DLP
--- NOTE | 2021-09-21 12:15 | DI.RAD_ITS ---
Exam(s) XR KNEE RT 3V AP,LAT,REJI EXAM: XR KNEE RT 3V AP,LAT,REJI CLINICAL HISTORY: effusion, pain TECHNIQUE: COMPARISON: CR XR KNEE LT 3V AP,LAT,REJI from 09/01/2020 FINDINGS: Three views were obtained. There appears to be a small knee joint effusion. There are slight degene rative changes of all 3 joints of the knee. No other bony or soft tissue abnormality seen. IMPRESSION: RADIATION DOSE DELIVERED: Total DLP
[2021-09-21 15:04] VITALS: BP 130/81; PULSE 102; TEMP 37; O2SAT 96
[2021-09-22 11:15] LABS: Lyme Ab w Rflx to Lyme Confirm Positive (Negative)
[2021-09-22 13:39] LABS: Lyme IgG Ab Negative (Negative); Lyme IgM Ab Negative (Negative)
[2021-09-26 20:45] LABS: Anaplasma phagocytophilum Negative (Negative); B. miyamotoi PCR Negative (Negative); Babesia divergens/MO-1 Negative (Negative); Babesia duncani Negative (Negative); Babesia microti Negative (Negative); Ehrlichia chaffeensis Negative (Negative); Ehrlichia ewingii/canis Negative (Negative); Ehrlichia muris eauclairensis Negative (Negative)
== END 2021-09-21 15:00 | disposition home or self-care (01) ==
PROVIDERS: Emergency Provider Physician Assistant; PCP Nurse Practitioner
DX: S82.51XA Displaced fracture of medial malleolus of right tibia, initial encounter for closed fracture (principal); M25.561 Pain in right knee; X58.XXXA Exposure to other specified factors, initial encounter
CPT/HCPCS: 29515; 73562; 86617; 87798; 99284; 73610; 86618; 99283

== ENCOUNTER 2021-09-29 14:00 | Outpatient (CLI) | payer MEDICARE, SELFPAY ==
--- NOTE | 2021-09-29 11:15 | DI.RAD_ITS ---
Exam(s) XR KNEE RT 2V AP,LAT EXAM: XR KNEE RT 2V AP,LAT CLINICAL HISTORY: right knee injury. TECHNIQUE: 2D digital imaging was performed. Three views. COMPARISON: CR XR KNEE RT 3V AP,LAT,REJI from 09/21/2021 FINDINGS: BONES: No acute fracture is present. No bony destructive lesion is seen. JOINTS: The knee is normally aligned. A tiny joint effusion is seen. The joint spaces are well maint ained. Minimal degenerative changes are noted. SOFT TISSUE: Mild vascular calcifications. IMPRESSION: Unremarkable radiographs of the right knee. DATA REPOSITORY: RADIATION DOSE DELIVERED:
--- NOTE | 2021-09-29 11:25 | DI.RAD_ITS ---
Exam(s) XR ANKLE RT COMPLETE EXAM: XR ANKLE RT COMPLETE INDICATION: right ankle fracture. COMPARISON: CR XR ANKLE RT COMPLETE from 09/21/2021 TECHNIQUE: 2D digital imaging was performed. Two views. FINDINGS: Bones: There is has been no change in the fracture at the tip of the medial malleolus. There is a 7 millimeter transverse defect in the lateral talar dome. There is mild displacement of the fragment l aterally. There are mild underlying degenerative changes of the ankle joint. A plantar calcaneal sp urs again noted. Mild tibial talar joint degenerative changes are also present. SOFT TISSUE: Soft tissue swelling is noted around both malleoli. Impression: Osteochondral defect of the medial talar dome with mildly displaced fragment. No change fracture of the tip of the medial malleolus. DATA REPOSITORY: RADIATION DOSE DELIVERED:
== END 2021-09-29 14:01 | disposition home or self-care (01) ==
LOC: DIORS 14:01
PROVIDERS: PCP Nurse Practitioner; Referring Provider Nurse Practitioner; Visit Provider Physician Assistant
DX: S89.91XA Unspecified injury of right lower leg, initial encounter; S80.01XA Contusion of right knee, initial encounter; W19.XXXA Unspecified fall, initial encounter; Y93.H2 Activity, gardening and landscaping; M95.8 Other specified acquired deformities of musculoskeletal system
CPT/HCPCS: 99214; 73560; 73610

== ENCOUNTER 2021-11-12 10:43 | Outpatient (CLI) | payer MEDICARE, SELFPAY ==
--- NOTE | 2021-11-12 09:30 | DI.RAD_ITS ---
Exam(s) XR ANKLE RT COMPLETE EXAM: XR ANKLE RT COMPLETE INDICATION: f/u R ANKLE. COMPARISON: CR XR ANKLE RT COMPLETE from 09/29/2021 TECHNIQUE: 2D digital imaging was performed. Three views. FINDINGS: the fracture at the tip of the medial malleolus is now barely visualized. There has been no change i n the osteochondral defect of the lateral talar dome. Decreased soft tissue swelling. A plantar calc aneal spur is again noted. DATA REPOSITORY: RADIATION DOSE DELIVERED:
== END 2021-11-12 10:44 | disposition home or self-care (01) ==
LOC: DIORS 10:43
PROVIDERS: PCP Nurse Practitioner; Referring Provider Nurse Practitioner; Visit Provider Student in an Organized Health Care Education/Training Program
DX: M95.8 Other specified acquired deformities of musculoskeletal system (principal)
CPT/HCPCS: 99213; 73610

== ENCOUNTER 2021-12-01 09:41 | Outpatient (REF) | payer MEDICARE, SELFPAY ==
[2021-12-03 11:07] LABS: COVID-19 RT-PCR UVMMC Result Negative (Negative)
== END 2021-12-01 09:42 | disposition home or self-care (01) ==
LOC: LBN 09:41
PROVIDERS: PCP Nurse Practitioner; Visit Provider Nurse Practitioner
DX: Z20.822 Contact with and (suspected) exposure to COVID-19 (principal)
CPT/HCPCS: U0003

== ENCOUNTER 2021-12-10 03:45 | Outpatient (CLI) | payer MEDICARE, SELFPAY ==
[2021-12-10 11:02] LABS: HCT 44.5 % (36.0-46.0); HGB 14.7 g/dL (11.2-15.7); MCH 30.6 pg (27.0-33.0); MCV 93 fL (80-95); MPV 9.1 fL (8.0-11.0); Platelet Count 255 10^3/uL (130-400); RDW 13.3 % (11.7-14.6); RDW-SD 45.7 fL; WBC 5.63 10^3/uL (4.4-10.8)
[2021-12-10 11:22] LABS: ALT 16 U/L (14-59); AST 14 U/L (15-37); Alkaline Phosphatase 77 U/L (46-116); Anion Gap 8.1 mmol/L (3-11); BUN 34 mg/dL (7-18); Bilirubin, Total 0.7 mg/dL (0.2-1.0); CO2 28.9 mmol/L (21.0-32.0); CREATININE 1.3 mg/dL (0.55-1.02); Calcium 9.8 mg/dL (8.5-10.1); Calculated LDL 89 mg/dL (<100); Chloride 103 mmol/L (98-107); Cholesterol 168 mg/dL (<200); Estimated GFR 40.55 (mL/min/1.73m2); Glucose 200 mg/dL (74-106); HDL Cholesterol 43 mg/dL (40-60); Potassium 4.7 mmol/L (3.5-5.1); Sodium 140 mmol/L (136-145); Total Protein 7.8 g/dL (6.4-8.2); Triglyceride 183 mg/dL (<150)
== END 2021-12-10 03:46 | disposition home or self-care (01) ==
LOC: LBO 03:46
PROVIDERS: PCP Nurse Practitioner; Visit Provider Nurse Practitioner
DX: E11.29 Type 2 diabetes mellitus with other diabetic kidney complication (principal); E78.00 Pure hypercholesterolemia, unspecified; I10 Essential (primary) hypertension; R80.9 Proteinuria, unspecified
CPT/HCPCS: 36415; 80053; 80061; 85027

== ENCOUNTER → 2021-12-28 13:05 | Outpatient (BNVA) | payer MEDICARE, SELFPAY | PROVIDERS: PCP Nurse Practitioner; Referring Provider Nurse Practitioner; Visit Provider Student in an Organized Health Care Education/Training Program | DX: M17.12 Unilateral primary osteoarthritis, left knee (principal) | CPT/HCPCS: 20610; J1040 ==

== ENCOUNTER 2022-01-01 01:56 | Outpatient (CLI) | payer MEDICARE, SELFPAY ==
[2022-01-04 10:05] LABS: Lyme Ab w Rflx to Lyme Confirm Negative (Negative)
== END 2022-01-01 01:57 | disposition home or self-care (01) ==
PROVIDERS: PCP Nurse Practitioner; Visit Provider Nurse Practitioner
DX: R76.8 Other specified abnormal immunological findings in serum (principal)
CPT/HCPCS: 36415; 86618

== ENCOUNTER 2022-02-11 15:14 | Outpatient (CLI) | payer MEDICARE, SELFPAY ==
[2022-02-11 15:56] LABS: ALT 28 U/L (14-59); AST 20 U/L (15-37); Alkaline Phosphatase 125 U/L (46-116); Anion Gap 4.5 mmol/L (3-11); BUN 28 mg/dL (7-18); Bilirubin, Total 0.4 mg/dL (0.2-1.0); CO2 32.5 mmol/L (21.0-32.0); CREATININE 1.3 mg/dL (0.55-1.02); Calcium 9.8 mg/dL (8.5-10.1); Chloride 103 mmol/L (98-107); Estimated GFR 40.55 (mL/min/1.73m2); Glucose 176 mg/dL (74-106); Potassium 4.3 mmol/L (3.5-5.1); Sodium 140 mmol/L (136-145); Total Protein 7.7 g/dL (6.4-8.2)
[2022-02-11 16:39] LABS: Vitamin B12 495 pg/mL (193-986)
== END 2022-02-11 15:15 | disposition home or self-care (01) ==
LOC: LBO 15:15
PROVIDERS: PCP Nurse Practitioner; Visit Provider Nurse Practitioner Family
DX: E11.65 Type 2 diabetes mellitus with hyperglycemia (principal)
CPT/HCPCS: 36415; 80053; 82607; 83735; 84443

== ENCOUNTER → 2022-05-07 10:53 | Outpatient (BNVA) | payer MEDICARE, SELFPAY | PROVIDERS: PCP Nurse Practitioner; Referring Provider Nurse Practitioner; Visit Provider Student in an Organized Health Care Education/Training Program | DX: M17.12 Unilateral primary osteoarthritis, left knee (principal) | CPT/HCPCS: 20610; J1040 ==

== ENCOUNTER → 2022-08-20 08:52 | Outpatient (BNVA) | payer MEDICARE, SELFPAY | PROVIDERS: PCP Nurse Practitioner; Visit Provider Student in an Organized Health Care Education/Training Program | DX: M17.12 Unilateral primary osteoarthritis, left knee (principal) | CPT/HCPCS: 20610; J1040 ==

== ENCOUNTER → 2022-11-22 08:52 | Outpatient (BNVA) | payer MEDICARE, SELFPAY | PROVIDERS: PCP Nurse Practitioner; Referring Provider Nurse Practitioner; Visit Provider Student in an Organized Health Care Education/Training Program | DX: M17.12 Unilateral primary osteoarthritis, left knee (principal) | CPT/HCPCS: 20610; J1040 ==

== ENCOUNTER 2022-12-02 01:19 | Outpatient (CLI) | payer MEDICARE, SELFPAY ==
[2022-12-02 11:25] LABS: COMMENT (LAB VIEW ONLY) 108.95 mg/dL; Microalb ug/mg Crea 39.5 ug/mg Cr
[2022-12-02 11:36] LABS: ALT 18 U/L (14-59); AST 15 U/L (15-37); Albumin 3.9 g/dL (3.4-5.0); Alkaline Phosphatase 85 U/L (46-116); Anion Gap 5.2 mmol/L (3-11); BUN 37 mg/dL (7-18); Bilirubin, Total 0.5 mg/dL (0.2-1.0); CO2 28.8 mmol/L (21.0-32.0); CREATININE 1.2 mg/dL (0.55-1.02); Calcium 9.8 mg/dL (8.5-10.1); Calculated LDL 106 mg/dL (<100); Chloride 105 mmol/L (98-107); Cholesterol 182 mg/dL (<200); Estimated GFR 44.36 (mL/min/1.73m2); Glucose 143 mg/dL (74-106); HDL Cholesterol 53 mg/dL (40-60); Potassium 4.8 mmol/L (3.5-5.1); Sodium 139 mmol/L (136-145); Total Protein 7.9 g/dL (6.4-8.2); Triglyceride 117 mg/dL (<150)
[2022-12-02 11:50] LABS: Vitamin D 25 Total 63.8 ng/mL (30-100)
== END 2022-12-02 01:20 | disposition home or self-care (01) ==
LOC: LBO 01:19
PROVIDERS: PCP Nurse Practitioner; Visit Provider Nurse Practitioner Family
DX: E11.65 Type 2 diabetes mellitus with hyperglycemia (principal); E55.9 Vitamin D deficiency, unspecified
CPT/HCPCS: 36415; 80053; 80061; 82306; 82043; 82570

== ENCOUNTER → 2023-02-24 09:48 | Outpatient (BNVA) | payer MEDICARE, SELFPAY | PROVIDERS: PCP Nurse Practitioner; Referring Provider Nurse Practitioner; Visit Provider Student in an Organized Health Care Education/Training Program | DX: M17.12 Unilateral primary osteoarthritis, left knee (principal) | CPT/HCPCS: 20610; J1030 ==

== ENCOUNTER → 2023-06-06 09:07 | Outpatient (BNVA) | payer MEDICARE, SELFPAY | PROVIDERS: PCP Nurse Practitioner; Visit Provider Student in an Organized Health Care Education/Training Program | DX: M17.12 Unilateral primary osteoarthritis, left knee (principal) | CPT/HCPCS: 20610; J7318 ==

== ENCOUNTER 2023-08-19 01:29 | Outpatient (CLI) | payer MEDICARE, SELFPAY ==
[2023-08-19 11:53] LABS: HCT 48.4 % (36.0-46.0); HGB 15.9 g/dL (11.2-15.7); MCH 30.8 pg (27.0-33.0); MCHC 32.9 % (32.0-36.0); MCV 94 fL (80-95); MPV 9.2 fL (8.0-11.0); Platelet Count 266 10^3/uL (130-400); RBC 5.17 10^6/uL (3.93-5.22); RDW 13.1 % (11.7-14.6); RDW-SD 45.2 fL; WBC 6.52 10^3/uL (4.4-10.8)
[2023-08-19 12:05] LABS: Anion Gap 8.6 mmol/L (3-11); BUN 29 mg/dL (7-18); CO2 30.4 mmol/L (21.0-32.0); CREATININE 1.3 mg/dL (0.55-1.02); Calcium 10.6 mg/dL (8.5-10.1); Chloride 103 mmol/L (98-107); Estimated GFR 40.05 (mL/min/1.73m2); Glucose 124 mg/dL (74-106); Potassium 4.7 mmol/L (3.5-5.1); Sodium 142 mmol/L (136-145)
== END 2023-08-19 01:30 | disposition home or self-care (01) ==
LOC: LBO 01:29
PROVIDERS: PCP Nurse Practitioner; Visit Provider Student in an Organized Health Care Education/Training Program
DX: M17.12 Unilateral primary osteoarthritis, left knee (principal); Z01.818 Encounter for other preprocedural examination
CPT/HCPCS: 36415; 80048; 85027

== ENCOUNTER 2023-08-19 10:37 | Outpatient (CLI) | payer MEDICARE, SELFPAY ==
--- NOTE | 2023-08-19 09:45 | DI.RAD_ITS ---
Exam(s) XR KNEE LT 1V XR STANDING ALIGNMENT EXAM: XR STANDING ALIGNMENT and XR knee LT 1 V CLINICAL HISTORY: OA LEFT KNEE. TECHNIQUE: 2D digital imaging was performed. Five images were obtained. COMPARISON: CR LEFT KNEE 3 VIEW COMPLETE from 11/28/2015 CR XR KNEE LT 3V AP,LAT,REJI from 09/01/2020 CR XR KNEE RT 3V AP,LAT,REJI from 09/21/2021 CR XR KNEE RT 2V AP,LAT from 09/29/2021 FINDINGS: BONES: The hips are well maintained. In the right knee, there is mild narrowing of the medial femora l tibial joint. In the left knee, there is marked narrowing of the lateral femoral tibial joint. Th ere osteophytes seen in the lateral femoral tibial joint and the patellofemoral joint. There is a sm all joint effusion. The ankles are well maintained.There is no significant leg length discrepancy. SOFT TISSUE: Vascular calcifications are present. IMPRESSION: Moderately severe osteoarthritis of the left knee as described. DATA REPOSITORY: RADIATION DOSE DELIVERED:
== END 2023-08-19 10:38 | disposition home or self-care (01) ==
LOC: DIORS 10:37
PROVIDERS: PCP Nurse Practitioner; Referring Provider Nurse Practitioner; Visit Provider Physician Assistant
DX: M17.12 Unilateral primary osteoarthritis, left knee (principal); Z01.818 Encounter for other preprocedural examination
CPT/HCPCS: 73560; 77073

== ENCOUNTER 2023-09-07 07:58 | Day surgery (SDC) | payer MEDICARE, SELFPAY ==
[2023-09-07] VITALS (26 sets, daily range): BP systolic 103–177; BP diastolic 54–102; PULSE 67–93; RESP 11–21; TEMP 36–36.7; O2SAT 92–97; BMI 28.3
--- NOTE | 2023-09-07 06:32 | W.ANESPRE ---
General Info Date of Service Date Performed: 09/07/23 Height: 5 ft 4 in Weight: 74.843 kg Body Mass Index (BMI): 28.3 Surgical Procedure: Operation Date: 09/07/23 10:10 Proposed Procedure Side Surgeon p Knee Total Arthroplasty w/OrthAlign, Cemented CR Left Casey Stern MD Meds Allergies and Home Medications Allergies Allergy/AdvReac Type Severity Reaction Status Date / Time guaifenesin AdvReac Intermediate Nausea Verified 09/07/23 08:20 metformin AdvReac Diarrhea Verified 09/07/23 08:20 Home Medication ?Medication ?Instructions ?Recorded aspirin 81 mg tablet,delayed 81 mg PO DAILY 06/22/12 release (Lo-Dose Aspirin) blood-glucose meter, drum-type 01/16/13 (Accu-Chek Compact Plus Care kit) cholecalciferol (vitamin D3) 125 125 mcg PO DAILY 06/29/21 mcg (5,000 unit) capsule blood sugar diagnostic #100 ea 08/04/21 lancets (Accu-Chek Fastclix Lancet #204 ea 06/06/23 Drum) multivitamin 1 tab PO DAILY 06/15/23 lisinopril 20 mg tablet See Rx Instructions .Route 08/10/23 .COMPLEX #90 tabs dulaglutide 0.75 mg/0.5 mL 1.5 mg subcut QWEEK 08/19/23 subcutaneous pen injector (Trulicity) famotidine 20 mg tablet 20 mg PO HS 09/07/23 simvastatin 10 mg tablet 10 mg PO HS 09/07/23 Current Visit Medications: Current Medications Generic Name Dose Route Start Last Admin Trade Name Holger PRN Reason Stop Dose Admin Acetaminophen 1,000 mg 09/07/23 06:00 Acetaminophen 500 Mg Tab PO 10/06/23 23:59 PREOP ARIS Celecoxib 400 mg 09/07/23 06:00 Celecoxib 200 Mg Cap PO 09/07/23 16:00 PREOP ARIS Gabapentin 300 mg 09/07/23 06:00 Gabapentin 300 Mg Cap PO 09/07/23 16:00 PREOP ARIS Ringer's Solution 1,000 mls @ 80 mls/hr 09/07/23 06:00 IV 10/06/23 23:59 INFUSION ARIS Cefazolin Sodium/Dextrose 2 gm in 50 mls @ 100 mls/hr 09/07/23 06:00 Ancef Duplex IVPB 09/07/23 16:00 PREOP ARIS Tranexamic Acid/Sodium Chloride 1,000 mg in 100 mls @ 600 mls/hr 09/07/23 06:00 IVPB 09/07/23 16:00 PREOP ARIS IV Miscellaneous Supplies 1 each 09/07/23 06:00 Iv Access IV 10/06/23 23:59 DIRECTED ARIS Sodium Chloride 0 ml 09/07/23 06:00 Normal Saline Flush 10 Ml Syr IV 10/06/23 23:59 PRN PRN Sodium Chloride 0 ml 09/07/23 06:00 Normal Saline 10 Ml Vial IJ 10/06/23 23:59 DIRECTED PRN Sterile Water 0 ml 09/07/23 06:00 Water,Injection,Sterile 10 Ml Vial IJ 10/06/23 23:59 DIRECTED PRN PFSH Active Problems Active Problems: Problem Status Onset Code Lung cancer screening declined by patient Acute Z53.20 Osteochondral defect of ankle Acute M95.8 Contusion of right knee Acute S80.01XA Osteoarthritis of left knee Acute M17.12 Cervical spinal stenosis Chronic M48.02 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 E11.29, R80.9 Pure hypercholesterolemia Chronic 10/02/14 E78.00 Insomnia Chronic 10/02/14 G47.00 Former smoker Chronic 10/02/14 Z87.891 Essential hypertension Chronic 10/04/12 I10 Type 2 diabetes mellitus Chronic 10/04/12 E11.9 Cystocele with rectocele Chronic 06/14/17 N81.10, N81.6 GERD (gastroesophageal reflux disease) Chronic K21.9 Medical History Medical History Actinic keratosis Cellulitis of skin Rash Chronic pruritic rash in adult GERD (gastroesophageal reflux disease) Hypertension Cortical cataract of right eye Nuclear sclerotic cataract of right eye Posterior subcapsular age-related cataract, right eye Diabetes mellitus Surgical History Surgical History Status post cataract extraction and insertion of intraocular lens of left eye (05/15/18) Status post cataract extraction and insertion of intraocular lens of right eye (05/01/18) S/P tonsillectomy and adenoidectomy H/O toe surgery Ligation of fallopian tube (~1995) Tobacco Smoking/Tobacco Use Status: Former Tobacco Use Alcohol Alcohol Intake: never Substance Use Substance use: Never Substance use type: does not use Vital Signs and Lab Results Vital Signs Most Recent Vital Signs in EMR: Temp Pulse Resp BP Pulse Ox 36.5 C 82 16 118/67 93 09/07/23 08:05 09/07/23 08:05 09/07/23 08:05 09/07/23 08:05 09/07/23 08:05 Lab Results Blood Type / Crossmatch: No Data to Display Complete Blood Count: White Blood Count 6.52 10^3/uL (4.4-10.8) 08/19/23 11:20 Red Blood Count 5.17 10^6/uL (3.93-5.22) 08/19/23 11:20 Hemoglobin 15.9 g/dL (11.2-15.7) H 08/19/23 11:20 Hematocrit 48.4 % (36.0-46.0) H 08/19/23 11:20 Platelet Count 266 10^3/uL (130-400) 08/19/23 11:20 Complete Metabolic Panel: Sodium 142 mmol/L (136-145) 08/19/23 11:20 Potassium 4.7 mmol/L (3.5-5.1) 08/19/23 11:20 Chloride 103 mmol/L (98-107) 08/19/23 11:20 Carbon Dioxide 30.4 mmol/L (21.0-32.0) 08/19/23 11:20 BUN 29 mg/dL (7-18) H 08/19/23 11:20 Creatinine 1.3 mg/dL (0.55-1.02) H 08/19/23 11:20 Est GFR (CKD-EPI 2020) 40.05 (mL/min/1.73m2) 08/19/23 11:20 Calcium 10.6 mg/dL (8.5-10.1) H 08/19/23 11:20 Glucose 124 mg/dL (74-106) H 08/19/23 11:20 Liver Function Panel: No Data to Display Coagulation Panel: No Data to Display Cardiac Panel: No Data to Display Arterial Blood Gas: No Data to Display Venous Blood Gas: No Data to Display Pancreas Panel: No Data to Display Thyroid Panel: No Data to Display Infectious Disease: No Data to Display Blood Cultures: No Data to Display Toxicology Panel: No Data to Display Imaging and Studies Imaging and Studies Study information below may be from another EMR and interpreted by another provider. Please see original notes in EMR for more complete details. Pulmonary Function Summary: 09/06: normal PFTs. Anesthesia Assessment and Plan Anesthesia History Personal History: No History of Anesthesia Complications Family History: No Family History of Anesthesia Complications Exercise Tolerance Exercise Tolerance: Metabolic Equivalents>4 Pertinent Negatives Pertinent Negatives: No Symptoms of GERD, No Major Cardiovascular Symptoms or Complaints, No Major Pulmonary Symptoms or Complaints and No History of CVA/TIA Cardiac & Pulmonary Exam Cardiac Exam: Normal S1/S2 Heart Sounds Pulmonary Exam: Clear Bilateral Breath Sounds Implantable Cardiac Device Does patient have a Pacemaker or an ICD?: No Airway Exam Known Difficult Airway: No Mallampati Class: 2 Mouth Opening: Normal (> 3cm) Thyromental Distance: Greater than 3 cm Neck Range of Motion: Full ROM Neck Circumference: Normal Teeth Condition: Normal Dentition ASA Classification ASA Score: ASA 2 Emergency Case?: No NPO Status NPO Status: NPO Clears >2 hours, Solids >8 hours Anesthesia Plan Resuscitation Status: Full Code Anesthesia Technique: Spinal Anesthesia Airway Planned: Natural Airway Pain Management: Surgeon and patient request nerve block Monitors Used: Standard Monitors Preoperative Comments:: 88 yo female for TKA. Sig PMHx: HTN (lisinopril), GERD (no meds listed), cervical spine stenosis, DM2 (trulicity), former smoker.
[2023-09-07] MEDS: Gabapentin 300 MG CAP PO (08:50)
[2023-09-07] MEDS: Acetaminophen 500 MG TAB 1000 MG PO (08:50)
[2023-09-07] MEDS: Celecoxib 200 MG CAP 400 MG PO (08:50)
[2023-09-07] MEDS: Lactated Ringers 1,000 ML 80 ML IV (09:20)
--- NOTE | 2023-09-07 10:02 | W.ANESNERVE ---
Nerve Block Single Injection Procedure Date and Time Date Performed: 09/07/23 Procedure Start: 09:44 Location Where Procedure Performed Procedure Location: Day Surgery Unit Reason Performed: Postoperative Analgesia Requesting Provider: Casey Stern Timeout Performed Timeout Performed: Yes Monitoring Used ECG, Blood Pressure and SpO2 Sterility Sterility: Hand Hygiene, Surgical Cap, Surgical Mask, Sterile Gloves and Chlorhexidine Sedation Given During Procedure Sedation Given (Indicate Dose Given): No Sedation given Patient Mental Status Patient Mental Status: Awake Nerve Block 1st Nerve Block: Laterality: Left Block Type: Adductor Canal Ultrasound Image Saved?: Yes Needle / Catheter Used: 100mm SonoPlex II Local Anesthetic Bolus (Indicate Dose Given): Lidocaine used for local infiltration of skin and Bupivacaine 0.25% Dose:: 10 mL Additives (Indicate Dose Given): None Ultrasound: Sterile probe cover and gel used Nerve Stimulator: Supplement to Ultrasound use and No twitch or parasthesia noted < 0.5 mA Paresthesia: None Procedure Tolerated: No Complications Procedure Outcome: Successful Performed By: Raphael Escamilla
[2023-09-07] MEDS: ceFAZolin 2 GM/50 ML BAG IVPB (10:32)
[2023-09-07] MEDS: TRANEXAMIC ACID/SOD. CHL. 1,000 MG/100 ML BAG 600 MG IVPB (10:36)
--- NOTE | 2023-09-07 12:34 | W.ANESPOSTOP ---
Postoperative Evaluation Date, Time and Location Date Performed: 09/07/23 Time Performed: 12:34 Patient Location: PACU Vital Signs Most Recent Imported Vital Signs: Most Recent Vital Signs Temp Pulse Resp BP Pulse Ox 36.3 C L 78 16 158/64 H 96 09/07/23 12:15 09/07/23 09:43 09/07/23 09:43 09/07/23 09:43 09/07/23 09:43 Pain Score Most Recent Pain Score: Most Recent Pain Score Pain Level 0 09/07/23 12:15 Assessment Mental Status: Awake (Alert & Oriented to Patient Baseline) Airway and Respiratory Function: Patent airway with normal (patient baseline) respiratory exam Cardiovascular Function: Hemodynamically Stable Hydration Status: Adequately Hydrated Nausea & Vomiting: No Nausea or Vomiting Pain: Pain is tolerable per patient (spinal almost worn off. ) Peripheral Nerve Block: Regional nerve block not resolved at time of post operative discharge
[2023-09-07] MEDS: oxyCODONE 5 MG TAB PO (13:21)
--- NOTE | 2023-09-07 13:59 | PT.INIE ---
PT Notes Physical Therapy Day Surgery Initial Evaluation Date: 09/07/2023 Referring Doctor: DIONICIO Young PT Orders: PT CONSULT: S/P ortho Surgery Precautions: Per Dr. Stern, WBAT on the L LE with AD. Patient Profile/Admitting Diagnosis: Aide is an 88-year-old female with degenerative joint disease of the left knee and status post left total knee arthroplasty on postoperative day 0. PMHX: Medical History Actinic keratosis Cellulitis of skin Rash Chronic pruritic rash in adult GERD (gastroesophageal reflux disease) Hypertension Cortical cataract of right eye Nuclear sclerotic cataract of right eye Posterior subcapsular age-related cataract, right eye Diabetes mellitus Surgical History Status post cataract extraction and insertion of intraocular lens of left eye (05/15/18) Status post cataract extraction and insertion of intraocular lens of right eye (05/01/18) S/P tonsillectomy and adenoidectomy H/O toe surgery Ligation of fallopian tube (~1995) Social History/Home Situation: Lives alone in a private home with an elevator to enter. Daughter Bee from [place] and will be staying with mother for a month to help as needed. Equipment Owned/DME: [facility] Subjective: Patient reported halo around both eyes that started with an half an hour to an hour of oxycodone intake. Nurse Radha aware and monitoring. Symptoms declined soon after patient voided urine and performed ambulation activity. Denied headache, chest pain, and headache throughout session. Objective: General Observation: Varsha wrap to left LE. Cryocuff to left knee. TEDS to right leg and foot. Mental Status: A and O x 4 Pain: 1/10 in the L knee ROM: Right Lower Extremity: Hip flexion WFL. Hip abduction WFL. Knee flexion WFL. Ankle dorsiflexion WFL. Ankle plantarflexion WFL. Left Lower Extremity: Hip flexion WFL. Hip abduction WFL. Knee flexion 10 degrees to 100 degrees. Knee extension -10 degrees. Ankle dorsiflexion WFL. Ankle plantarflexion WFL. Strength: Right Lower Extremity: Hip flexors 5/5. Hip abductors 5/5. Knee flexors 5/5. Knee extensors 5/5. Ankle dorsiflexors 5/5. Ankle plantarflexors 5/5. Left Lower Extremity:Hip flexors 4/5. Hip abductors 4/5. Knee flexors 3-/5. Knee extensors 3-/5. Ankle dorsiflexors 4/5. Ankle plantarflexors 5/5. Sensation: Intact as to pain and light pressure in bilateral lower extremities Bed Mobility/Transfers: Minimal cueing provided for use of B hands as needed for support, movement sequence, AD management, and posture to reduce fall risk and minimize pain report Supine to sit stand by assist Sit to stand stand by assist with FWW Stand to sit stand by assist with FWW Bed to chair stand by assist with FWW Gait: Facilitated safe and correct performance of level surface ambulation covering a distance of 450 feet using front wheeled walker with step-to gait pattern requiring only standby assist with minimal verbal cueing provided for safe and correct gait pattern, movement sequence, weight distribution, and posture to minimize fall risk and reduce pain report. Symptom of halos around eyes diminished Stairs: Guided patient with safe and correct negotiation of 3 x 4 inch steps and 2 x 6 inch steps while holding onto bilateral rails with step to gait pattern requiring verbal cueing for increased knee flexion on the left during each ascent. Contact-guard assist provided with no report of increased pain. Symptom of halo around eyes diminished. Balance: Static Sitting: Normal Dynamic Sitting: Normal Static Standing: Fair Dynamic Standing: Fair Special Tests: Mobility Limitations Standardized Measure [facility] AM-PAC 6 clicks Basic Mobility Inpatient Short Form: Raw Score: 22 CMS Score: 21% deficit Informed Consent/Education: Patient instructed in purpose of PT consult. Packet containing TKA exercise protocol has been given to patient. Education and training on initial set of exercises that can be done at home have been completed with patient. Trained patient with correct performance of exercises below to maximize motor control, joint flexibility, soft tissue extensibility of the L knee musculature: Access Code: [email or web address] URL: [email or web address] Date: 09/07/2023 Prepared by: Lexi Desai Exercises - Supine Quad Set - 1 x daily - 7 x weekly - 1 sets - 10 reps - 5 hold - Supine Heel Slide - 1 x daily - 7 x weekly - 1 sets - 10 reps - 5 hold - Supine Ankle Pumps - 1 x daily - 7 x weekly - 1 sets - 10 reps - 5 hold - Small Range Straight Leg Raise - 1 x daily - 7 x weekly - 1 sets - 10 reps - 5 hold - Seated March - 1 x daily - 7 x weekly - 1 sets - 10 reps - 5 hold Assessment: Patient requires use of a front wheeled walker for mobility ADL performance maximize independence and reduce fall risk Patient presents with clinical signs and symptoms consistent with current/admitting diagnoses that have resulted to mobility limitations, gait instability, generalized weakness, and impairment of motor control as demonstrated by the following impairment level findings: 1. Decreased strength to left knee major muscle groups 2. Impaired standing balance 3. Limitation of joint range of motion in left knee Impairments are contributing to the following functional limitations: 1. Inability to safely ambulate without assistive device 2. Increase completion time for mobility ADL performance 3. Increased fall risk Patient is assessed as a [id number] moderate complexity based on the following: History: 88-year-old female with impairment level findings, functional limitations, and past medical history as indicated above Examination: Demonstrable impairment in strength, balance, and mobility level with underlying impairments and functional limitations as documented above Presentation: Evollving Decision Makin moderate complexity Goals: N/A. PT evaluation and 1-2 treatment sessions only for functional mobility training using recommended AD and for HEP instruction. Plan of Care/Treatment Plan: N/A. PT evaluation and 1-2 treatment session only for functional mobility training using recommended AD and for HEP instruction. DISCHARGE RECOMMENDATIONS: Home when medically cleared by orthopedic surgeon. Recommend outpatient PT services in order to optimize functional mobility outcomes and facilitate return to independent community ambulation without an assistive device. TREATMENT CODE/TIME: 9716 2 x 20 minutes for 1 unit, 9753 0 x 14 minutes for 1 unit space (13:59?14:33). Thank you for the opportunity to participate in the care of this patient. Please sign an return this page within 30 days if you agree with the above POC. Thank you! Physician Signature Date [facility] Thank you for the opportunity to participate in the care of this patient. Lexi Desai PT, DPT, CLT [facility] [place], [place]
--- NOTE | 2023-09-07 14:49 | ROE_ITS ---
Date of service: 09/07/23 Time of Service: 10:40 Operative Note Operative Note DATE OF PROCEDURE: 09/07/23 PRE-OP DIAGNOSIS: Left Knee Arthritis with Valgus Deformity POST-OP DIAGNOSIS: same PROCEDURE: Left Total Knee Arthroplasty with Intraoperative Navigation SURGEON: Casey Stern CHILD SUPPORT SPECIALIST: Stu Gray ANESTHESIA TYPE: Spinal Refer to Anesthesia Record ESTIMATED BLOOD LOSS: 100 PATHOLOGY: none sent COMPLICATIONS: None Patient was transported to: PACU Patient's condition: stable Implants: 1. Depuy Attune Cruciate Retaining Femoral Component, Size 6 2. Depuy Attune Fixed Bearing Tibial Component, Size 6 3. Depuy Attune 6x8 CR, FB Poly 4. Depuy Attune Patellar Component, Size 38 Indications: I have seen Aide in clinic for symptoms of knee arthritis, confirmed with radiographic findings. She has exhausted nonoperative methods and was having significant limitations in daily function and desired better function and less pain. I discussed the technical details of a knee replacement. I explained the risks of the procedure to include, but not limited to, bleeding, infection, pain, stiffness, fracture, damage to nerves and vessels, damage to muscles and tendons, loosening, need for repeat procedure, blood clot and cardiopulmonary demise. Despite these risks, Aide elected to proceed. Findings: There was significant signs of arthritis throughout the knee, most notably in the lateral tibia and femur. Procedure Description: Aide was greeted in the preoperative holding area where the correct side was identified and marked. The consent was reviewed with the patient and signed. The history and physical was updated. All questions were answered. Preoperative mediacations were administered: Acetaminophen 1000mg, Celebrex 400mg, Gabapentin 300mg, and Oxycontin 10mg. An adductor canal block was then administered by the anesthesia team in the PACU. She was taken back to the operating room. A spinal anesthestic was then administered. The patient was placed into the supine position on the operating room table. A nonsterile tourniquet was placed high onto the leg but only used for cementing. Posts were placed for positioning during the procedure. All bony prominences were well padded. Prophylactic antibiotics in the form of Cefazolin were administered. 1g of Tranxemic Acid was given intravenously within 30 minutes of incision. The left leg was then prepped with Chloraprep and draped in a standard fashion with impervious stockinette and extremity drape with Iodine impregnated skin protection. A timeout to confirm correct identity, side and site, procedure, allergies, anesthesia, and medical concerns was performed. With the knee in some flexion, a midline incision was made overlying the knee. Full thickness skin flaps were raised once the extensor mechanism was encountered. These were raised medially and laterally. Any bleeding was controlled with electrocautery. Once the extensor mechanism was fully exposed, a medial parapatellar arthrotomy was performed in a flexed position. All bleeding from the arthrotomy and the geniculate arteries was coagulated. A medial subperiosteal peel was performed with electrocautery to the midcoronal plane. The fat pad was removed while keeping the patellar tendon protected. The anterior distal femur synovium was removed for later visualization. The ACL and PCL were resected and the anterior horn of the lateral meniscus was transected. The knee was then flexed with the patella everted. Large osteophytes from the tibia were removed. Large osteophytes from the femur were removed. A single starting pin was then placed 1cm anterior to the PCL insertion and the notch in the direction of the femoral head. The OrthoAlign device was applied over the pin. It was oriented to be in line with the epicondylar axis and the trochlear groove. It was then pinned into place. The navigation computer was then turned on and calibrated. The distal femur cut was set at 0.5 degrees valgus and 3.5 degrees flexion. The distal femur cutting guide then was positioned for a 9mm cut. The distal femur was cut with an oscillating saw while protecting the soft tissues. The tibia was then addressed. The OrthoAlign device was placed over the tibial tubercle and medial tibia and secured into position. Once again, OrthoAlign was calibrated and then set for a 1 degree varus cut and 5 degrees of posterior slope. With this locked into position, the cut thickness stylus was used to assess cut thickness. The lateral side, most involved side, was set for a 4mm c ut, corresponding to 6mm medially. This was then held in position and pinned into place with 2 additional pins and a cross pin for stability. The medial and lateral collateral ligaments were protected and the cut was performed. With this completed, it was assessed and noted to be of appropriate dimensions. The guide and OrthoAlign was removed. A spacer block was inserted and the knee was brought into extension. The 8mm spacer block provided full extension, without hyperextension and with stability of both the medial and lateral collateral ligaments was assessed. The pins from the femur and the tibia were then removed. The distal femur was then sized. The anterior stylus was placed onto the lateral ridge of the anterior femur. This indicated a size 6 femur. The external rotation of the guide was adjusted to 3 degrees to match the epicondylar axis, perpendicular to Mongo?s line. The 4-in-1 cutting guide was the placed. The posterior medial femur cut was evaluated and appeared of good thickness. The spacer block was inserted underneath the cutting guide and stability was confirmed in 90 degrees of flexion. An bruce wing was used to confirm appropriate position of the anterior cut to avoid notching. This cutting guide was ensured to be flush on the cut surface and then pinned into place with headed pins. While protecting the soft tissues, quad tendon, and collateral ligaments, the anterior and posterior cuts were performed with a saw. The central two pins were removed and the posterior and anterior chamfers were cut next. The notch-cutting guide was placed. This was pinned to lateralize the femoral component as much as possible while keeping it flush on the cut surface. This was then pinned into position. A reciprocating saw was used to make the notch cut. A rasp smoothed the cut surfaces. A trial posterior stabilized femoral component was then inserted, impacted down to the cut surfaces, and the lug holes were drilled. A provisional trial tibial component was placed and the knee was brought through range of motion. There was noted to be excellent extension and flexion. There was no significant instability. The patella was tracking w ithout thumbs. The tibial cut surface was fully exposed. The medial and lateral menisci were removed. The tibia was then sized as a 6. The tibia had been previously marked during trialing to correspond to the center of the tibial component to help with rotation. The trial was aligned to this stu, approximately rotated to the medial 1/3rd of the tibial tubercle. The trial was pinned into place. The tibia was prepared with a reamer and a keel punch. The knee was then brought into extension and the patella was measured as 25mm. Using the patellar clamp and cut guide, this was resected to a flat surface with at least 13mm of thickness remaining. The size 38 patella fit the best. This was oriented and then clamped into position. The lugs were drilled. The trial components were removed. The final components, except for the polyethylene were opened on the back table. The periosteal and capsular tissues, especially posteriorly, around the knee were then systematically injec javy with a periarticular cocktail consisting of 246mg of Ropivacaine, 0.5mg of Epinephrine, 0.08mg of Clonidine, and 30mg of Ketorolac, diluted to 100cc. The tourniquet was then inflated to 275mmHg. The knee was thoroughly irrigated with a pulse lavage and dried. On the back table, with the implants opened, the cement was mixed. 2 batches of antibiotic laden cement were prepared with vacuum assistance. After the cement was ready a small amount was placed on to the back side of the tibial component at the keel. A small amount was placed onto the posterior flange of the femur. Cement was manual pressurized and impregnated into the cut surface of the tibia. The tibial component was then inserted into the cut surface and impacted into position. Excess cement was removed and the component was reimpacted. Again, excess cement was removed and our attention was then turned to the femur. The femoral cut surface was once again dried and cement was manually impacted into the cut surface. The femoral component was lined with the lug holes and impacted. Excess cement was removed. It was ensured to be down against the cut surface. The trial polyethylene was then inserted and the leg was brought out into full extension for the duration of the cement curing process, approximately 15min. Cement was lastly manually impacted into the cut surface of the patella and the patellar button was clamped into position and held. During this process attention was turned to the gutters of the knee and for all interfaces for any excess cement. The knee was then thoroughly irrigated with Surgiphor Betadine solution. It was allowed to sit in the knee for 3 minutes before being irrigated out with saline. After the cement had finally cured, approximately 15min, the clamp was removed from the patella and the knee was taken through range of motion. A size 8mm polyethylene component provided the best range of motion and stability with less than 2mm gapping with medial and lateral stress and full extension without significant hyperextension. The patella was tracking with a no-thumbs technique. The trial poly was removed and once again the knee was checked for any loose, excess, or errant cement. The poly component was then inserted into position after cleaning and drying the tibial tray. The capsule was then reapproximated with a No. 1 Vicryl at multiple locations. The capsule was finally closed with a No. 2 Stratafix, barbed suture. The tourniquet was then released and the arthrotomy appeared watertight without significant bleeding. The second dosing of 1g TXA was started. Deep tissues were then reapproximated with 0 Vicryl and 2-0 Vicryl. The skin was closed with a running 3-0 Monocryl in a subcuticular fashion. This was reinforced with skin glue. A Mepilex silver dressing was applied along with a [id number] LEONARD wrap. A CryoCuff was applied. Aide was transferred to the hospital bed without difficulty an suffering no apparent complication. She has a good prognosis. Physical therapy will start today and without restrictions, weight-bearing as tolerated. Aspirin 81mg BID will be used for DVT prophylaxis.
--- NOTE | 2023-09-07 15:04 | W.PM.DSUDISC ---
Date of service: 09/07/23 Time of Service: 15:05 Discharge Plan Disposition Patient Disposition: Home Condition: Good Discharge Details Reason For Visit: L TKR Attending Provider: Casey Stern Primary Care Provider: Huong Schneider Home Meds and New Rx's Prescriptions: New acetaminophen 500 mg tablet 1,000 mg PO TID Qty: 90 3RF aspirin 81 mg tablet,delayed release (DR/EC) 81 mg PO BID Qty: 60 0RF celecoxib 200 mg capsule 200 mg PO BID Qty: 60 0RF tramadol 50 mg tablet 50 mg PO Q4H PRNQty: 20 0RF pantoprazole 40 mg tablet,delayed release (DR/EC) 40 mg PO DAILY Qty: 30 0RF dexamethasone 4 mg tablet 4 mg PO DAILY Qty: 2 0RF gabapentin 300 mg capsule 300 mg PO QHS Qty: 14 0RF Continued Trulicity 0.75 mg/0.5 mL pen injector 1.5 mg subcut QWEEK multivitamin Tablet 1 tab PO DAILY (DME) Accu-Chek Compact Plus Care 1 EACH kit 1 ea Miscellaneous cholecalciferol (vitamin D3) 125 mcg (5,000 unit) capsule 125 mcg PO DAILY (DME) blood sugar diagnostic Strip See Rx Instructions .ROUTE .MEDSUPPLY Qty: 100 3RF Rx Instructions: Dispense Accu-check Guide strips to check BS BID for DM E11.9 to keep A1c at or below 7. (DME) lancets [Accu-Chek Fastclix Lancet Drum] Misc See Rx Instructions .ROUTE .COMPLEX Qty: 204 3RF Dose Instruction: USE TO TEST TWICE DAILY FOR DIABETES MELLITUS TO MAINTAIN A1C AT OR BELOW 7 Rx Instructions: USE TO TEST TWICE DAILY FOR DIABETES MELLITUS TO MAINTAIN A1C AT OR BELOW 7 lisinopril 20 mg tablet See Rx Instructions .ROUTE .COMPLEX Qty: 90 3RF Dose Instruction: TAKE 1 TABLET BY MOUTH DAILY Rx Instructions: TAKE 1 TABLET BY MOUTH DAILY simvastatin 10 mg tablet 10 mg PO HS Rx Instructions: TAKE 1 TABLET BY MOUTH DAILY famotidine 20 mg tablet 20 mg PO HS Discontinued aspirin [Lo-Dose Aspirin] 81 MG tablet,delayed release (DR/EC) 81 mg PO DAILY Discharge Instructions Additional Instructions: Total Knee Discharge Instructions Activity: The most important activity is to walk and to work on gentle motion (both flexion and extension). You should try to take short walks a few times a day. It is important that when resting you work on keeping the knee straight. Avoid putting a pillow behind the knee as this will encourage flexion. Work on range of motion exercises as provided by Physical Therapy. - Start outpatient physical therapy within 2 weeks. - You should wear the ALEXANDER hose on both legs for 2 weeks. You may remove these at night. You may also use any compression sock in place of the ALEXANDER hose. - Utilize [employer] to review exercises, see videos on exercises and obtain basic information pertaining to your surgery and your recovery. Dressing: Remove the Vitaly wrap by 2 days after your surgery and put on the ALEXANDER stocking given to you from the hospital. Keep the surgical dressing (underneath the VITALY wrap) in place for at least one week. After the first week it may be removed and replaced with light gauze and tape or nothing. The wound and dressing may get wet after 3 days but avoid soaking the dressing or otherwise it will need to be changed. Many people prefer covering the dressing with cling wrap (saran wrap) to minimize it from getting soaked. If it gets wet, just pat dry. If it starts to peel off then it will need to be changed. Medications: - You should take Tylenol and anti-inflammatory Celebrex as your primary pain control medications. If the Celebrex is too expensive or not covered, please call the office for another alternative (Advil/Ibuprofen or Naproxen/Aleve) - You have been prescribed a stronger pain medication Tramadol for breakthrough pain, take as needed as prescribed. - You have also been prescribed a stomach acid reduction agent Pantoprozole to help reduce stomach acid and reflux. - You have been prescribed Gabapentin to take at night for restlessness and nerve pain. - You will be taking Aspirin 81mg twice a day for DVT prevention unless instructed otherwise. - You have also been prescribed Decadron to take to control post-operative nausea and pain. You will start this tomorrow. - If you have constipation you should take Colace or Miralax (both [id number]). It takes most people 3-4 days to have a bowel movement. Follow-up: 2 weeks If you have any acute concerns or questions, please do not hesitate to contact the office at [phone]. You may contact Dr. Stern with any questions after hours through the hospital at [phone] or on his cell phone at [phone]. Equipment/Supplies: Walker Activity:: Activity as Tolerated Shower/Bathe:: 72 hours Diet:: As Tolerated Discharge Orders Discharge Orders: Discharge Order (Routine); Ordered 09/07/23 Ordered By: Sohail Gray DS: Diagnosis Discharge Diagnosis (1) History of total left knee replacement: Status: Acute
== END 2023-09-07 15:55 | disposition home or self-care (01) ==
PROVIDERS: PCP Nurse Practitioner; Visit Provider Student in an Organized Health Care Education/Training Program
PROC: (CPT 27447; principal; 2023-09-07 10:00)
DX: M17.12 Unilateral primary osteoarthritis, left knee (principal); E11.9 Type 2 diabetes mellitus without complications; Z79.85 Long-term (current) use of injectable non-insulin antidiabetic drugs; E78.00 Pure hypercholesterolemia, unspecified; K21.9 Gastro-esophageal reflux disease without esophagitis; I10 Essential (primary) hypertension
CPT/HCPCS: 20985; 27447; C1776; 76942; 97162; 97530; J0665; J0690; J1100; J2371; J2401; J2405; J2704

== ENCOUNTER 2023-09-22 13:26 | Outpatient (CLI) | payer MEDICARE, SELFPAY ==
--- NOTE | 2023-09-22 13:50 | DI.RAD_ITS ---
Exam(s) XR KNEE LT 1V XR STANDING ALIGNMENT EXAM: XR STANDING ALIGNMENT CLINICAL HISTORY: F/U LEFT TKR. TECHNIQUE: 2D digital imaging was performed. Standing AP views were performed from the pelvis throu gh the ankles. Lateral view knee COMPARISON: CR XR KNEE LT 1V from 08/19/2023 CR XR STANDING ALIGNMENT from 08/19/2023 CR XR KNEE LT 1V from 09/22/2023 FINDINGS: BONES: No acute fracture is present. No bony destructive lesion is seen. Leg length discrepancy: In overall leg discrepancy JOINTS: Knees: Status post placement total knee prosthesis. The alignment appears satisfactory. The right knee joint spaces are maintained. The ankle joints are unremarkable. The hip joints are unremarkable. SOFT TISSUE: Normal vascular calcifications. IMPRESSION: Satisfactory appearance left total knee prosthesis. No significant leg length discrepancy. DATA REPOSITORY: RADIATION DOSE DELIVERED:
== END 2023-09-22 13:27 | disposition home or self-care (01) ==
LOC: DIORS 13:27
PROVIDERS: PCP Nurse Practitioner; Referring Provider Nurse Practitioner; Visit Provider Student in an Organized Health Care Education/Training Program
DX: Z96.652 Presence of left artificial knee joint (principal); Z47.1 Aftercare following joint replacement surgery
CPT/HCPCS: 73560; 77073

== ENCOUNTER → 2023-10-20 13:39 | Outpatient (BNVA) | payer MEDICARE, SELFPAY | PROVIDERS: PCP Nurse Practitioner | DX: Z47.1 Aftercare following joint replacement surgery (principal); Z96.652 Presence of left artificial knee joint ==

== ENCOUNTER → 2023-12-05 09:15 | Outpatient (BNVA) | payer MEDICARE, SELFPAY | PROVIDERS: PCP Nurse Practitioner; Referring Provider Nurse Practitioner; Visit Provider Student in an Organized Health Care Education/Training Program | DX: Z96.652 Presence of left artificial knee joint (principal) | CPT/HCPCS: 99024 ==

== ENCOUNTER 2024-04-05 03:10 | Outpatient (CLI) | payer MEDICARE, SELFPAY ==
[2024-04-05 10:35] LABS: COMMENT (LAB VIEW ONLY) 105.04 mg/dL; Microalb ug/mg Crea 8.1 ug/mg Cr
[2024-04-05 11:01] LABS: ALT 18 U/L (14-59); AST 16 U/L (15-37); Albumin 3.8 g/dL (3.4-5.0); Alkaline Phosphatase 93 U/L (46-116); Anion Gap 6.3 mmol/L (3-11); BUN 32 mg/dL (7-18); Bilirubin, Total 0.53 mg/dL (0.2-1.0); CO2 29.7 mmol/L (21.0-32.0); CREATININE 1.1 mg/dL (0.55-1.02); Calculated LDL 85 mg/dL (<100); Chloride 106 mmol/L (98-107); Cholesterol 158 mg/dL (<200); Estimated GFR 48.94 (mL/min/1.73m2); Glucose 128 mg/dL (74-106); HDL Cholesterol 50 mg/dL (40-60); Potassium 4.6 mmol/L (3.5-5.1); Sodium 142 mmol/L (136-145); Total Protein 7.7 g/dL (6.4-8.2); Triglyceride 119 mg/dL (<150)
== END 2024-04-05 03:11 | disposition home or self-care (01) ==
LOC: LBO 03:10
PROVIDERS: PCP Nurse Practitioner; Visit Provider Nurse Practitioner Family
DX: E11.65 Type 2 diabetes mellitus with hyperglycemia (principal); Z79.4 Long term (current) use of insulin
CPT/HCPCS: 36415; 80053; 80061; 82306; 82043; 82570; 83036

== ENCOUNTER 2024-09-03 10:10 | Outpatient (CLI) | payer MEDICARE, SELFPAY ==
--- NOTE | 2024-09-03 09:30 | DI.RAD_ITS ---
Exam(s) XR KNEE LT 2V AP,LAT EXAM: XR KNEE LT 2V AP,LAT CLINICAL HISTORY: ANNUAL F/U L TKA. TECHNIQUE: 2D digital imaging was performed. Two images were obtained. AP and lateral views were obtained. COMPARISON: CR XR KNEE LT 1V from 08/19/2023 CR XR KNEE LT 1V from 09/22/2023 CR XR STANDING ALIGNMENT from 09/22/2023 FINDINGS: BONES: There are stable post operative changes of a left total knee arthroplasty present. There is a tiny triangular osseous fragment the superior aspect of the patella which may represent a small fracture. JOINTS: The orthopedic hardware is in good position. No evidence of hardware loosening. SOFT TISSUE: Atherosclerotic calcification is present. IMPRESSION: 1. Stable left total knee arthroplasty. 2. New tiny triangular density superior to the patella consistent with a fracture. This is of indeterminate age. DATA REPOSITORY: RADIATION DOSE DELIVERED:
== END 2024-09-03 10:11 | disposition home or self-care (01) ==
LOC: DIORS 10:10
PROVIDERS: PCP Nurse Practitioner; Referring Provider Nurse Practitioner; Visit Provider Student in an Organized Health Care Education/Training Program
DX: Z47.1 Aftercare following joint replacement surgery (principal); Z96.652 Presence of left artificial knee joint
CPT/HCPCS: 99212; 73560

== ENCOUNTER 2024-09-06 10:49 | Emergency (ER) | payer MEDICARE, SELFPAY ==
[2024-09-06 10:51] VITALS: BP 129/74; PULSE 102; RESP 20; TEMP 36.4; O2SAT 93
--- NOTE | 2024-09-06 11:00 | DI.RAD_ITS ---
Exam(s) XR CHEST 2V PA LATERAL EXAM: XR CHEST 2V PA LATERAL CLINICAL HISTORY: ?pneumonia TECHNIQUE: 2D digital imaging was performed of the chest. Two images were obtained. PA and lateral views were obtained. COMPARISON: CR CHEST 2 VIEWS PA,LAT from 07/25/2016 FINDINGS: MEDIASTINUM: Normal. HEART: Normal. PULMONARY VASCULATURE: Normal. LUNGS: Clear. PLEURAL SPACE: No pleural effusion or pneumothorax. BONE:Within normal limits for the patient's age. OTHER FINDINGS:Normal. IMPRESSION: No acute pulmonary findings. DATA REPOSITORY: RADIATION DOSE DELIVERED:
--- NOTE | 2024-09-06 11:07 | W.ED.GENAD ---
Discharge Plan Disposition Patient Disposition: Home Condition: Stable Discharge Details Clinical Impression: Hyperglycemia, Elevated LFTs Primary Care Provider: Huong Schneider ED Provider: Asaf Hernandez Home Meds and New Rx's Prescriptions: Continued multivitamin Tablet 1 tab PO DAILY (DME) Accu-Chek Compact Plus Care 1 EACH kit 1 ea Miscellaneous cholecalciferol (vitamin D3) 125 mcg (5,000 unit) capsule 125 mcg PO DAILY (DME) blood sugar diagnostic Strip See Rx Instructions .ROUTE .MEDSUPPLY Qty: 100 3RF Rx Instructions: Dispense Accu-check Guide strips to check BS BID for DM E11.9 to keep A1c at or below 7. (DME) lancets [Accu-Chek Fastclix Lancet Drum] Misc See Rx Instructions .ROUTE .COMPLEX Qty: 204 3RF Dose Instruction: USE TO TEST TWICE DAILY FOR DIABETES MELLITUS TO MAINTAIN A1C AT OR BELOW 7 Rx Instructions: USE TO TEST TWICE DAILY FOR DIABETES MELLITUS TO MAINTAIN A1C AT OR BELOW 7 lisinopril 20 mg tablet See Rx Instructions .ROUTE .COMPLEX Qty: 100 2RF Dose Instruction: TAKE 1 TABLET BY MOUTH DAILY Rx Instructions: TAKE 1 TABLET BY MOUTH DAILY simvastatin 10 mg tablet See Rx Instructions .ROUTE .COMPLEX Qty: 100 2RF Dose Instruction: TAKE 1 TABLET BY MOUTH DAILY Rx Instructions: TAKE 1 TABLET BY MOUTH DAILY famotidine 20 mg tablet See Rx Instructions .ROUTE .COMPLEX Qty: 140 4RF Dose Instruction: TAKE 1 TABLET BY MOUTH TWICE DAILY Rx Instructions: TAKE 1 TABLET BY MOUTH TWICE DAILY Mounjaro 2.5 mg/0.5 mL pen injector 5 mg subcut QWEEK Patient Comments: 08/14/24 visit pt states this was increased from 2.5mg Rx Instructions: for 4 weeks acetaminophen 500 mg tablet 1,000 mg PO TID Qty: 90 3RF aspirin 81 mg tablet,delayed release (DR/EC) 81 mg PO BID Qty: 60 0RF Patient Comments: reports taking once a day insulin glargine [Lantus Solostar U-100 Insulin] 100 unit/mL (3 mL) insulin pen 8 unit SUBCUT DAILY Patient Comments: new prescription, hasn't started yet (sent yesterday) Discharge Instructions Additional Instructions: Your liver function tests were elevated. Your CAT scan showed dilation of your biliary system and could not exclude a pancreatic mass. He also had an abnormal appearing uterus which if you wanted to have further workup could have an outpatient ultrasound done. Radiology was recommending having an MRI done which I have placed an order for you to have done. Follow-up with your vegetable cook and PCP. If you feel significantly more ill or have new symptoms such as severe abdominal pain or high fevers return to the emergency department for reevaluation. Discharge Orders Other Ambulatory Orders: MR abdomen wo/w (Routine) Timeframe: 10 Day Facility: [facility] - Location: DIAGNOSTIC IMAGING Ordered By: Asaf Hernandez MR abdomen and/or MRCP wo (Routine) Timeframe: 10 Day Facility: [facility] - Location: DIAGNOSTIC IMAGING Ordered By: Asaf Hernandez [facility] General Mode of arrival: ambulatory. Date/Time Provider Initiated Documentation: 09/06/24 10:50. Limitations to Documentation: no limitations. Information obtained by: patient. History of Present Illness 89 year old F presents to the emergency department with the chief complaint of high blood sugar, described as moderate, Patient started experiencing this month(s) (3) and it has been constant. No relieving factors improve symptom(s), No exacerbating factors reported . Patient notes denies confusion, chest pain, fever/chills, nausea/vomiting and shortness of breath. Patient did receive the following treatments prior to arrival, none Related Data Home Medications ?Medication ?Instructions ?Recorded ?Confirmed blood-glucose meter, drum-type 01/16/13 09/06/24 (Accu-Chek Compact Plus Care kit) cholecalciferol (vitamin D3) 125 125 mcg PO DAILY 06/29/21 09/06/24 mcg (5,000 unit) capsule blood sugar diagnostic #100 ea 08/04/21 09/06/24 lancets (Accu-Chek Fastclix Lancet #204 ea 06/06/23 09/06/24 Drum) multivitamin 1 tab PO DAILY 06/15/23 09/06/24 acetaminophen 500 mg tablet 1,000 mg (2 x 500 mg) PO TID #90 09/07/23 09/06/24 tabs aspirin 81 mg tablet,delayed 81 mg PO BID #60 tabs 09/07/23 09/06/24 release lisinopril 20 mg tablet See Rx Instructions .Route 04/02/24 09/06/24 .COMPLEX #100 tabs simvastatin 10 mg tablet See Rx Instructions .Route 04/03/24 09/06/24 .COMPLEX #100 tabs famotidine 20 mg tablet See Rx Instructions .Route 08/10/24 09/06/24 .COMPLEX #140 tabs insulin glargine 100 unit/mL (3 8 unit subcut DAILY 09/06/24 09/06/24 mL) subcutaneous pen (Lantus Solostar U-100 Insulin) tirzepatide 2.5 mg/0.5 mL 5 mg subcut QWEEK 09/06/24 09/06/24 subcutaneous pen injector (Terranceunjonathanro) Previous Rx's ?Medication ?Instructions ?Recorded blood sugar diagnostic #100 ea 08/04/21 lancets (Accu-Chek Fastclix Lancet #204 ea 06/06/23 Drum) acetaminophen 500 mg tablet 1,000 mg (2 x 500 mg) PO TID #90 09/07/23 tabs aspirin 81 mg tablet,delayed 81 mg PO BID #60 tabs 09/07/23 release lisinopril 20 mg tablet See Rx Instructions .Route 04/02/24 .COMPLEX #100 tabs simvastatin 10 mg tablet See Rx Instructions .Route 04/03/24 .COMPLEX #100 tabs famotidine 20 mg tablet See Rx Instructions .Route 08/10/24 .COMPLEX #140 tabs Allergies Allergy/AdvReac Type Severity Reaction Status Date / Time guaifenesin AdvReac Intermediate Nausea Verified 09/06/24 10:53 metformin AdvReac Diarrhea Verified 09/06/24 10:53 oxycodone AdvReac Visual Verified 09/06/24 10:53 Disturbances General Stated Complaint: Diabetes COURTNEY: 3 Review of Systems All systems reviewed & are unremarkable except as noted in HPI and below Constitutional Constitutional: Denies chills, Reports fatigue and Denies fever(s) Cardiovascular Cardiovascular: Denies chest pain and Denies dyspnea Respiratory Respiratory: Denies cough and Denies dyspnea Gastrointestinal Gastrointestinal: Denies abdominal pain, Denies nausea and Denies vomiting Endocrine Endocrine: Reports fatigue Exam Const General: no acute distress Orientation: alert HENMA Head: normal to inspection Ears: external ears normal General nose exam: external nose normal Mouth: moist mucous membranes Eyes General: appearance normal, both eyes and all related structures Neck Neck: normal visual inspection Resp Effort & Inspection: normal respiratory effort and able to speak in complete sentences Cardio Rate: regular rate GI Palpation: nontender Skin General skin exam: no rashes or lesions noted Neuro General: patient alert and patient oriented x3 Extrem General: normal to inspection Psych Mental Status: mental status grossly normal Course Vital Signs Vital signs: Vital Signs Temperature 36.4 C L 09/06/24 10:51 Pulse 102 H 09/06/24 10:51 Respiratory Rate 20 09/06/24 10:51 Blood Pressure 129/74 09/06/24 10:51 Pulse Oximetry 93 09/06/24 10:51 Temperature 36.4 C L 09/06/24 10:51 Temperature Source Tympanic 09/06/24 10:51 Pulse 102 H 09/06/24 10:51 Respiratory Rate 20 09/06/24 10:51 Blood Pressure 129/74 09/06/24 10:51 Blood Pressure Position Sitting 09/06/24 10:51 Pulse Oximetry 93 09/06/24 10:51 Oxygen Delivery Method Room Air 09/06/24 10:51 Oxygen Flow Rate 0 09/06/24 10:51 Pain Level 0 09/06/24 10:51 Medical Decision Making 89-year-old female with a history of diabetes, CKD comes here from her PCPs office with elevated blood sugars. She says that her blood sugars been elevated for the past few months. She reports some mild fatigue otherwise feels well. Denies any chest pain, headaches, difficulty breathing, fevers chills or abdominal pain. She is amatory at arrival. She is moving all extremities well with good strength and is oriented x 4. Given the hyperglycemia I will check a CBC a CMP and a UA along with a chest x-ray to evaluate for pneumonia. Also check a venous blood gas to evaluate for possible DKA. patient's lft's elevated. She has no right upper quadrant tenderness. I will obtain an ultrasound just to exclude significant gallbladder and liver disease Ultrasound unable to find the gallbladder, and recommended CT scan. Patient is stable and states she feels well. She is willing to go through with a CT. She has no abdominal tenderness still. CT shows dilated biliary system, cannot exclude pancreatic neoplasm and radiology recommends follow-up MR CP and also MRI abdomen pancreatic protocol. Has lesions in her adrenal gland as well and abnormal appearing uterus. I have advised the patient of all these findings. I discussed admitting her to the hospital for overnight observation and having the MRI done tomorrow but she declines this and request discharge and will pursue outpatient MRI. She is currently asymptomatic. She has clinical decision-making capacity. I am going to order the MRI for her to have it done as an outpatient. She will follow-up with her PCP and vegetable cook. She is starting her Lantus. Return precautions given Lab Data Lab results reviewed: Yes I reviewed the patient's lab results. PFSH All Active Problems (Updated 09/06/24 @ 15:38 by Asaf Hernandez MD) Elevated LFTs (Acute) Hyperglycemia (Acute) DM hyperosmolarity type II, uncontrolled (Acute) CKD stage 3a, GFR 45-59 ml/min (Acute) History of total left knee replacement (Acute 09/07/23) Lung cancer screening declined by patient (Acute) Osteochondral defect of ankle (Acute) Contusion of right knee (Acute) Cervical spinal stenosis (Chronic) 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) Pure hypercholesterolemia (Chronic 10/02/14) Insomnia (Chronic 10/02/14) Former smoker (Chronic 10/02/14) Essential hypertension (Chronic 10/04/12) Type 2 diabetes mellitus (Chronic 10/04/12) Cystocele with rectocele (Chronic 06/14/17) Pessary in place GERD (gastroesophageal reflux disease) (Chronic) Medical History Actinic keratosis Cellulitis of skin Rash Chronic pruritic rash in adult GERD (gastroesophageal reflux disease) Hypertension Cortical cataract of right eye Nuclear sclerotic cataract of right eye Posterior subcapsular age-related cataract, right eye Diabetes mellitus Surgical History Status post cataract extraction and insertion of intraocular lens of left eye (05/15/18) Status post cataract extraction and insertion of intraocular lens of right eye (05/01/18) S/P tonsillectomy and adenoidectomy H/O toe surgery Ligation of fallopian tube (~1995) Family History Grandmother Diabetes Father Lung cancer Mother Emphysema of lung Social History Smoking/Tobacco Use Status: Former Tobacco Use Quit Date: 02/21/03 Smoking risk assessment performed?: Yes Alcohol Intake: never Drug use: Never Substance use type: does not use Household members: none Housing: house Number of Children: 3 Communication Needs: Corrective Lenses Do you need help understanding health information?: Never current occupation: hairdresser, retired Pets and animals: Yes Pets and animals: dog(s) Current gender identity: female What is your relationship status?: How often do you talk on the phone with friends or family?: never How often do you get together with friends or relatives?: never Do you belong to any clubs or organized social groups?: no Panel score (0-1 are the most socially isolated patients): 0 What type of physical activity do you participate in: walking Duration: 15-30 minutes/day Frequency: daily Seatbelt use: always Drive intox or ride w/intox belly dump driver: No Working smoke detector in home: Yes Carbon monox detector in home: Yes Do you feel safe at home: Yes Do you feel safe in your relationship?: Yes
[2024-09-06] MEDS: Normal Saline 1,000 ML 1000 ML IV (11:09)
[2024-09-06 11:15] VITALS: BP 129/74; PULSE 102; RESP 20; TEMP 36.4; O2SAT 93
[2024-09-06 11:15] LABS: BE (Venous) 2 mmol/L (-2-3); HCO3 (Venous) 27 mmol/L (23-28); O2 Sat (Venous) 63 %; TCO2 (Venous) 24 mmol/L (24-29); pCO2 (Venous) 45 mmHg (41-51); pO2 (Venous) 33 mmHg
[2024-09-06 11:19] LABS: Abs Immature Grans 0.03 10^3/uL (0.0-0.06); HCT 39.3 % (36.0-46.0); HGB 13.2 g/dL (11.2-15.7); Immature Grans % 0.4 %; MCH 30.8 pg (27.0-33.0); MCHC 33.6 % (32.0-36.0); MCV 92 fL (80-95); MPV 10.5 fL (8.0-11.0); Platelet Count 208 10^3/uL (130-400); RBC 4.29 10^6/uL (3.93-5.22); RDW 14.9 % (11.7-14.6); RDW-SD 50.1 fL; WBC 8.14 10^3/uL (4.4-10.8)
--- NOTE | 2024-09-06 11:30 | DI.US_ITS ---
Exam(s) US ABDOMEN EXAM: US ABDOMEN CLINICAL HISTORY: elevated liver enzymes TECHNIQUE: Ultrasound abdomen performed using standard protocol. COMPARISON: US POCUS EXAM from 09/07/2023 FINDINGS: ABDOMINAL AORTA AND IVC: Visualized portions normal caliber. PANCREAS: There is mild pancreatic ductal dilatation. There is heterogeneity of the pancreas without definite discrete mass. LIVER: Normal. Hepatopetal flow in the Portal Vein. No evidence of a hepatic mass. The liver measures 14.9cm long. GALLBLADDER:The gallbladder was not definitely visualized on this examination. It may be contracted or absent. BILIARY SYSTEM: Common bile duct measures < 7 mm. No intrahepatic biliary ductal dilation. KIDNEYS: Kidneys are symmetric in size. No evidence of renal calculi. No evidence of hydronephrosis. There are simple right renal cysts. No follow-up is recommended. SPLEEN: Not enlarged. ASCITES: None seen. IMPRESSION: 1. The gallbladder is not definitely visualized on this examination. No intrahepatic biliary ductal dilatation is seen. 2. There is heterogeneity of the pancreas without definite discrete mass. 3. A CT scan of the abdomen with IV contrast is recommended in this patient for further evaluation. DATA REPOSITORY:
[2024-09-06 11:36] LABS: Magnesium 2.2 mg/dL (1.8-2.4)
[2024-09-06 11:40] LABS: ALT 581 U/L (14-59); AST 168 U/L (15-37); Albumin 3.3 g/dL (3.4-5.0); Alkaline Phosphatase 425 U/L (46-116); Anion Gap 10.0 mmol/L (3-11); BUN 35 mg/dL (7-18); Bilirubin, Total 6.3 mg/dL (0.2-1.0); CO2 27.0 mmol/L (21.0-32.0); Calcium 9.9 mg/dL (8.5-10.1); Chloride 96 mmol/L (98-107); Estimated GFR 39.80 (mL/min/1.73m2); Glucose 387 mg/dL (74-106); Potassium 4.5 mmol/L (3.5-5.1); Sodium 133 mmol/L (136-145); Total Protein 7.4 g/dL (6.4-8.2)
[2024-09-06 11:46] LABS: Procalcitonin 2.41 ng/mL
[2024-09-06 11:54] VITALS: BP 132/62; PULSE 91; RESP 15; O2SAT 95
[2024-09-06 12:07] LABS: Glucose >=1000 mg/dL (Negative)
[2024-09-06 12:17] LABS: RBC 0-2 HPF (0-2)
[2024-09-06 12:18] LABS: C & S Indicated? No
[2024-09-06] MEDS: Insulin REGULAR-Human 100 UNITS/ML UNIT 8 UNITS SC ×2 (12:29→13:59)
--- NOTE | 2024-09-06 14:00 | DI.CT_ITS ---
Exam(s) CT ABDOMEN PELVIS W EXAM: CT ABDOMEN PELVIS W CLINICAL HISTORY: elevated lft's. TECHNIQUE: Imaging Protocol: Axial computed tomography images with coronal and sagittal reformatted images were created and reviewed CONTRAST MATERIAL: Intravenous: Omnipaque-350 100cc Oral: None COMPARISON: CR XR CHEST 2V PA LATERAL from 09/06/2024 FINDINGS: VISUALIZED LUNG BASES: There is a thin walled bulla in the right lower lobe measuring 3.6 x 3.0 cm. This does not contain a fluid level. There are mild increased markings in the posterior basal segment of the right lower lobe. No associated pleural effusion on either side.. ABDOMEN: There is no ascites nor significant mesenteric masses. LIVER: There are dilated ducts in both lobes of the liver. The common hepatic duct is also dilated to to 7.5 mm. The actual CBD exhibits upper normal diameter. GALLBLADDER/BILIARY: Gallbladder is not seen and is most probably surgically absent. CBD at the level the pancreatic head is not dilated but does appear to contain some subtle densities therein (series 8/image [id number]). PANCREAS: Pancreatic duct is dilated measuring up to 4-5 mm in the body and tail. There is a subtle area of hypodensity in the pancreatic head and there is also a single tiny calcification in the pancreatic head. There are few small cysts in the pancreas measuring up to 6 mm. The uncinate process appears unremarkable. No adjacent vascular encasement. SPLEEN: Spleen is not enlarged. No obvious intrasplenic lesions. Splenic and portal veins are patent. ADRENALS: There is a nodule in left adrenal gland which measures 1.8 x 1.7 cm. There is a smaller nodule at the genu of the right adrenal gland which measures 1 cm x 1 cm. KIDNEYS:There are multiple bilateral kidney cysts. The largest of these is in the inferior pole of the left kidney and measures 6.2 by 5.2 cm. These benign cysts do not require further workup. There are no solid renal masses. There is a calcification-calculus in the right kidney which measures 6 mm. There is an ipsilateral parapelvic cysts but no true hydronephrosis nor hydroureter. No solid renal masses.. ABDOMINAL AORTA: There is a fusiform infrarenal abdominal aortic aneurysm which exhibits maximum diameter of only 2.5 cm. The iliac arteries are calcified but not enlarged. LYMPH NODES:There is no retroperitoneal nor paraaortic adenopathy. ABDOMINAL WALL: No evidence of significant anterior abdominal wall nor inguinal hernia. GI: There is no evidence of bowel obstruction, free air, nor abscess. PELVIS: GI: No evidence of appendicitis.There is extensive sigmoid diverticulosis. There is no evidence of obvious acute diverticulitis. There also diverticuli in left side of the colon at and distal to the splenic flexure and there are scattered uncomplicated diverticuli in left side of the colon also evident. LYMPH NODES: There is no intrapelvic nor inguinal adenopathy. REPRODUCTIVE: Slightly prominent and enhancing endometrium in this elderly patient. No significant uterine fibroids. No abnormal adnexal masses and no free fluid in the pelvis. URINARY BLADDER: No calculi nor obvious masses evident OSSEOUS: No fractures and no significant osseous lesions. Mild degenerative anterolisthesis of L4 upon L5 related to facet arthropathy. Schmorl's nodes invagination in the inferior endplate of L3 noted. No fractures IMPRESSION: 1. There is significant dilatation of the biliary tree both intra and extrahepatic and there is also some dilatation of the pancreatic duct. The CBD above the level the pancreatic head measures up to 1.3 cm size. The pancreatic duct measures up to 5-6 mm size. Gallbladder is not seen and is presumed to be surgically absent. Subtle density in the lower CBD noted and there is also mild hypodensity in the pancreatic head region. First consideration is for obstructing abnormality within the lumen of the lower CBD or neoplastic process either within the biliary tree or pancreatic head. Follow-up contrast infused MRI and MRCP are recommended. There are no metastatic appearing lesions in the liver and there is no obvious [id number] adenopathy. 2. In addition to dilated pancreatic duct there also a few sub cm cysts in the pancreas measuring up to 6 mm. 3. There are no distinct focal lesions evident in the liver. Multiple benign cysts noted in the kidneys without evidence of solid renal masses. 4. Nodules in both adrenal glands, larger on the left side where it measures 18 x 17 mm. Smaller nodule in the right adrenal gland. These can be also further study during MRI examination to determine incidental adenomas versus possible adrenal metastatic disease. 5. Enhancing and slightly enlarged endometrium for this age group. Requires follow-up to rule out endometrial malignancy, starting with ultrasound. Findings discussed with ER physician 09/06/2024 at 3:10 p.m. RADIATION DOSE DELIVERED: 419.01mGy.cm Total DLP DATA REPOSITORY: All CT scans at this facility are submitted to the National Radiology Data Registry (NRDR) Dose Index Registry (DIR) with the [employer] (ACR). RADIATION OPTIMIZATION: All CT scans at this facility use at least one of these dose optimization techniques: automated exposure control; mA and/or kV adjustment per patient size (includes targeted exams where dose is matched to clinical indication); or iterative reconstruction.
[2024-09-06] MEDS: Omnipaque 350 MG/ML 100 ML BTL IJ (14:33)
[2024-09-06] MEDS: Normal Saline - Diluent 50 ML VIAL IV (14:35)
[2024-09-06 15:12] VITALS: BP 138/72; PULSE 65; RESP 13; O2SAT 96
[2024-09-06 15:47] LABS: Lipase 670 U/L (<78)
[2024-09-06 15:49] LABS: Bilirubin, Direct 5.2 mg/dL (0.0-0.2)
[2024-09-07 11:00] LABS: Hepatitis A Antibody IgM Negative (Negative); Hepatitis C Ab w Rflx HCV PCR Negative (Negative)
== END 2024-09-06 15:58 | disposition home or self-care (01) ==
PROVIDERS: Emergency Provider Emergency Medicine; PCP Nurse Practitioner
DX: R79.89 Other specified abnormal findings of blood chemistry (principal); E11.65 Type 2 diabetes mellitus with hyperglycemia; K83.8 Other specified diseases of biliary tract; R53.83 Other fatigue
CPT/HCPCS: 99284; 99285; 36415; 36416; 82962; 80053; 82805; 83690; 84145; 86704; 86709; 86803; 87340; 96360; 96361; 71046; 74177; 76705; 81003; 81015; 82248; 83735; 85025; J1815; J3490

== ENCOUNTER 2024-09-10 00:45 | Outpatient (CLI) | payer MEDICARE, SELFPAY ==
--- NOTE | 2024-09-10 07:45 | DI.MRI_ITS ---
Exam(s) MR ABDOMEN WO/W EXAM: MR ABDOMEN WO/W CLINICAL HISTORY: ELEVATED LFT'S,DILATED BILE DUCT,ADRENAL NODULE,PANCREATIC DUCT TECHNIQUE: Multiplanar multisequence MRI of the Abdomen was performed. MRCP sequences also performed. CONTRAST MATERIAL: IV Contrast: 13 mL of Dotarem contrast administered. COMPARISON: CT CT ABDOMEN PELVIS W from 09/06/2024 FINDINGS: Exam is limited by patient motion. Lung bases: Unremarkable. Liver: Unremarkable. Pancreas: 2 centimeter mass seen in the superior head causing a dilated pancreatic duct. There are other tiny pancreatic cysts in the tail. Gallbladder and Bile Ducts: Gallbladder is not seen. The intrahepatic ducts and the common hepatic duct are dilated. There is an ill-defined mass in the proximal pancreas measuring roughly 2 cm, at the bifurcation of the pancreatic duct and common hepatic duct, which is the cause of the obstruction. There is also dilatation of the pancreatic duct. Beneath the level of the mass, the common bile duct is more normal in diameter Adrenals: 15 millimeter homogeneous nodule on the left adrenal gland. Signal characteristics consistent with benign adenoma. The recent CT mentions a small nodule in the right however this could to small to be evaluated on MRI due to slice thickness and motion. The signal of the right adrenal gland is homogeneous. Kidneys: Multiple bilateral cysts. Spleen: Unremarkable. Aorta: Minimal dilatation. Soft Tissues: Unremarkable. Bone: Degenerative changes in the lumbar spine. Lymph Nodes: Unremarkable. Stomach and bowel: The stomach and small bowel are unremarkable. Diverticulosis noted in the colon. Peritoneal cavity: Unremarkable. No evidence of ascites. IMPRESSION: 2 centimeter ill-defined mass in the head of the pancreas causing severe narrowing at the junction of the pancreatic duct and common hepatic duct with distal dilatation. Left adrenal lesion consistent with benign adenoma. DATA REPOSITORY:
[2024-09-10] MEDS: Gadoterate meglumine 20 ML VIAL 13 ML IVP (15:33)
[2024-09-10] MEDS: Normal Saline - Diluent 50 ML VIAL 25 ML IJ (15:34)
== END 2024-09-10 01:05 ==
LOC: DI 00:45
PROVIDERS: PCP Nurse Practitioner; Visit Provider Family Medicine
DX: R79.89 Other specified abnormal findings of blood chemistry (principal); K83.8 Other specified diseases of biliary tract; K86.89 Other specified diseases of pancreas; E27.9 Disorder of adrenal gland, unspecified
CPT/HCPCS: 74183

== ENCOUNTER 2024-09-21 01:46 | Outpatient (CLI) | payer MEDICARE, SELFPAY ==
--- NOTE | 2024-09-21 13:19 | DI.CT_ITS ---
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 TECHNIQUE: Imaging protocol: Axial computed tomography images were obtained and coronal and sagittal reformatted images were created and reviewed. Computer aided detection (CAD) was utilized. CONTRAST MATERIAL: Noncontrast COMPARISON: CR XR CHEST 2V PA LATERAL from 09/06/2024 FINDINGS: Pulmonary parenchyma: No consolidation. 8 x 6 x 4 millimeter nodule in the lateral left lower lobe. Scattered cysts, the largest at the medial left lower lobe measuring 3.7 cm. Interstitial changes: None. Emphysema: None. Tracheobronchial tree: No mucous plugging. No bronchiectasis . Pleura: No effusion or pneumothorax. Heart: The heart is mildly dilated. The coronary arteries show severe calcifications. Aorta: Thoracic aorta non-dilated. Moderate atherosclerotic changes. Pulmonary arteries: The main pulmonary trunk is dilated to 4 cm. Lymph nodes: No enlarged lymph nodes. Bones: Degenerative changes are seen. No evidence of compression fracture. Upper abdomen: Biliary stent and biliary air is now present. Soft tissues: Unremarkable. IMPRESSION: Single 8 by 6 x 4 millimeter circumscribed nodule in the left lower lobe, indeterminate for metastatic disease. No adenopathy. No suspicious bony lesions. RADIATION DOSE DELIVERED: Total DLP Total DLP DATA REPOSITORY: All CT scans at this facility are submitted to the National Radiology Data Registry (NRDR) Dose Index Registry (DIR) with the [employer] (ACR). RADIATION OPTIMIZATION: All CT scans at this facility use at least one of these dose optimization techniques: automated exposure control; mA and/or kV adjustment per patient size (includes targeted exams where dose is matched to clinical indication); or iterative reconstruction.
== END 2024-09-21 02:06 ==
LOC: DI 01:46
PROVIDERS: PCP Nurse Practitioner; Visit Provider Surgery
DX: C25.0 Malignant neoplasm of head of pancreas (principal)
CPT/HCPCS: 71250

== ENCOUNTER 2024-10-11 00:56 | Outpatient (CLI) | payer MEDICARE, SELFPAY ==
[2024-10-11 13:19] LABS: Abs Immature Grans 0.01 10^3/uL (0.0-0.06); HCT 34.7 % (36.0-46.0); HGB 11.3 g/dL (11.2-15.7); Immature Grans % 0.2 %; MCH 30.5 pg (27.0-33.0); MCHC 32.6 % (32.0-36.0); MCV 94 fL (80-95); MPV 9.4 fL (8.0-11.0); Platelet Count 235 10^3/uL (130-400); RBC 3.70 10^6/uL (3.93-5.22); RDW 15.6 % (11.7-14.6); RDW-SD 53.1 fL; WBC 5.47 10^3/uL (4.4-10.8)
[2024-10-11 14:13] LABS: ALT 36 U/L (14-59); AST 28 U/L (15-37); Albumin 3.2 g/dL (3.4-5.0); Alkaline Phosphatase 201 U/L (46-116); Anion Gap 7.0 mmol/L (3-11); BUN 31 mg/dL (7-18); Bilirubin, Total 1.0 mg/dL (0.2-1.0); CO2 29.0 mmol/L (21.0-32.0); Calcium 10.1 mg/dL (8.5-10.1); Chloride 106 mmol/L (98-107); Estimated GFR 61.87 (mL/min/1.73m2); Glucose 116 mg/dL (74-106); Potassium 4.5 mmol/L (3.5-5.1); Sodium 142 mmol/L (136-145); Total Protein 7.1 g/dL (6.4-8.2)
[2024-10-15 19:21] LABS: CA 19-9 997 U/mL (<35)
== END 2024-10-11 00:57 | disposition home or self-care (01) ==
LOC: LBO 00:56
PROVIDERS: PCP Nurse Practitioner; Visit Provider Internal Medicine Hematology & Oncology
DX: C25.0 Malignant neoplasm of head of pancreas (principal)
CPT/HCPCS: 36415; 80053; 85025; 86301

== ENCOUNTER 2024-11-15 11:33 | Outpatient (CLI) | payer MEDICARE, SELFPAY ==
[2024-11-15 11:38] LABS: Abs Immature Grans 0.02 10^3/uL (0.0-0.06); HCT 41.9 % (36.0-46.0); HGB 13.4 g/dL (11.2-15.7); Immature Grans % 0.3 %; MCH 30.4 pg (27.0-33.0); MCHC 32.0 % (32.0-36.0); MCV 95 fL (80-95); MPV 10.1 fL (8.0-11.0); Platelet Count 196 10^3/uL (130-400); RBC 4.41 10^6/uL (3.93-5.22); RDW 13.6 % (11.7-14.6); RDW-SD 47.7 fL; WBC 6.01 10^3/uL (4.4-10.8)
[2024-11-15 12:38] LABS: Iron 48 ug/dL (50-170); Total Iron Binding Capacity 288 ug/dL (250-450)
[2024-11-15 12:49] LABS: ALT 28 U/L (14-59); AST 22 U/L (15-37); Albumin 3.6 g/dL (3.4-5.0); Alkaline Phosphatase 119 U/L (46-116); Anion Gap 7.8 mmol/L (3-11); BUN 34 mg/dL (7-18); Bilirubin, Total 0.5 mg/dL (0.2-1.0); CO2 28.2 mmol/L (21.0-32.0); Calcium 10.2 mg/dL (8.5-10.1); Chloride 104 mmol/L (98-107); Estimated GFR 54.53 (mL/min/1.73m2); Ferritin 173 ng/mL (8-252); Glucose 189 mg/dL (74-106); Potassium 4.7 mmol/L (3.5-5.1); Sodium 140 mmol/L (136-145); Total Protein 7.6 g/dL (6.4-8.2)
[2024-11-16 09:53] LABS: Transferrin 220 mg/dL (201-352)
[2024-11-16 12:16] LABS: CA 19-9 1740 U/mL (<35)
== END 2024-11-15 11:34 | disposition home or self-care (01) ==
LOC: LBO 11:33
PROVIDERS: PCP Nurse Practitioner; Visit Provider Family Medicine
DX: D64.9 Anemia, unspecified (principal); C25.9 Malignant neoplasm of pancreas, unspecified; C25.0 Malignant neoplasm of head of pancreas
CPT/HCPCS: 36415; 80053; 82728; 83540; 83550; 84466; 85025; 86301